=== PATIENT | male | born 1950 ===

== ENCOUNTER 2018-03-13 09:20 | Inpatient (IN) ==
[2018-03-13] MEDS ORDERED: Sod Chloride 0.9% Inj 1,000 ML IV.CONT SCH (09:30)
[2018-03-13 09:35] LABS: Baso # (Auto) 0.1 th/mm3 (0.0-0.2); Baso % (Auto) 0.8 % (0.0-2.0); Eos # (Auto) 0.2 th/mm3 (0.0-0.4); Eos % (Auto) 2.5 % (0.0-4.0); Hematocrit 41.2 % (39.0-51.0); Hemoglobin 13.8 gm/dL (13.0-17.0); Lymph # (Auto) 1.8 th/mm3 (1.0-4.8); Lymph % (Auto) 20.4 % (9.0-44.0); Mean Corpuscular HGB Conc 33.5 % (32.0-36.0); Mean Corpuscular Hemoglobin 28.7 pg (27.0-34.0); Mean Corpuscular Volume 85.8 fL (80.0-100.0); Mean Platelet Volume 8.2 fL (7.0-11.0); Mono # (Auto) 0.7 th/mm3 (0.0-0.9); Mono % (Auto) 7.7 % (0.0-8.0); Neut % (Auto) 68.6 % (16.0-70.0); Platelet Count 306 th/mm3 (150-450); Red Cell Distribution Width 14.1 % (11.6-17.2); White Blood Count 8.7 th/mm3 (4.0-11.0)
--- NOTE | 2018-03-13 09:42 | CT ---
EXAM DATE: AGE/SEX: 68 years / Male INDICATIONS: STROKE ALERT. Right side facial droop. Unable to follow commands. CLINICAL DATA: This is the patient's initial encounter. Patient reports that signs and symptoms have been present for 1 day and indicates a pain score of 0/10. MEDICAL/SURGICAL HISTORY: Non-responsive. Non-responsive. RADIATION DOSE: 39.02 CTDI (mGy) COMPARISON: No prior exams available for comparison. TECHNIQUE: CT of the head without contrast. Using automated exposure control and adjustment of the mA and/or kV according to patient size, radiation dose was kept as low as reasonably achievable to ob tain optimal diagnostic quality images. DICOM format image data is available electronically for revi ew and comparison. FINDINGS: There is mild prominence of the CSF spaces. No signs of acute infarct, hemorrhage, or mass. Osseous s tructures are intact. CONCLUSION: 1. Mild volume loss otherwise unremarkable. Findings of this examination were reviewed by [Dr. Mckeon with Dr. Johnson at 9:35 AM on March 13, 2018. ] Electronically signed by: Carlos Grider MD 03/13/2018 9:41 AM EDT
[2018-03-13 09:50] LABS: INR 1.1 Ratio; Prothrombin Time 10.7 sec (9.8-11.6)
--- NOTE | 2018-03-13 09:53 | ED ---
HPI General Chief Complaint: Stroke Alert Stated Complaint: Stroke Alert Time Seen by Provider: 03/13/18 09:22 Source: patient, family and EMS Mode of arrival: EMS Limitations: altered mental status History of Present Illness HPI Narrative: 68-year-old man, presents to the emergency department with the abrupt onset of right-sided weakness facial droop with marked expressive aphasia. He has a history of CAD, multiple MIs, multiple stents. I spent a lot of time trying to clarify his medication list. It sounds like he has been on escalating antiplatelet and anticoagulant therapy because of multiple MIs in the past. His medication list shows multiple medications listed and crossed out. It sounds like he had been given instructions to stop his Eliquis, but according the family he had been weaning himself off, and was still taking a half dose tablet daily. Patient has marked expressive aphasia and is unable to provide any history. 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 No history of previous stroke symptoms. Related Data Allergies Allergy/AdvReac Type Severity Reaction Status Date / Time No Known Allergies Allergy Unverified 03/13/18 09:23 Review of Systems ROS Unobtainable unobtainable due to mental condition FOR[facility]LY [facility] Medical History Medical History Coronary artery disease (Acute) HTN (hypertension) (Acute) Myocardial infarction (Acute) Social History Social History Substance History: Unable to Obtain Smoking Status: Unknown if ever smoked How Often Do You Have a Drink Containing Alcohol: Unable to Obtain Recent Travel in [place] within the Last 8 Weeks: No Recent Out of Country Travel within the Last 8 Weeks: No Exam Narrative Exam Narrative: GENERAL: 68-year-old man, nontoxic appearing. Mute aphasia. SKIN: Focused skin assessment warm/dry. HEAD: Atraumatic. Normocephalic. EYES: Pupils equal and round. No scleral icterus. No injection or drainage. ENT: No nasal bleeding or discharge. Mucous membranes pink and moist. NECK: Trachea midline. No JVD. CARDIOVASCULAR: Regular rate and rhythm. No murmur appreciated. RESPIRATORY: No accessory muscle use. Clear to auscultation. Breath sounds equal bilaterally. GASTROINTESTINAL: Abdomen soft, non-tender, nondistended. Hepatic and splenic margins not palpable. MUSCULOSKELETAL: No obvious deformities. No clubbing. No cyanosis. No edema. NEUROLOGICAL: Awake and alert. Mute aphasia with only occasional yeses or nose. Unable to follow commands. Seems to be weak on the right side with some right-sided drift. Sensation appears to be intact. He does not appear to have any neglect. Course Initial Documented Vital Signs Temperature 98.8 F 03/13/18 09:23 Pulse Rate 65 03/13/18 09:23 Respiratory Rate 18 03/13/18 09:23 Blood Pressure 158/75 H 03/13/18 09:23 Pulse Oximetry 95 03/13/18 09:23 Last Documented Vital Signs Temperature 98.8 F 03/13/18 09:23 Pulse Rate 65 03/13/18 09:23 Respiratory Rate 18 03/13/18 09:23 Blood Pressure 158/75 H 03/13/18 09:23 Pulse Oximetry 95 03/13/18 09:27 Critical Care Time Critical Care Time: Yes Total Critical Care Time: 45 Attestation: Aggregate critical care time was 45 minutes. Time to perform other separately billable procedures was not included in the critical care time. My time did not include minutes spent treating any other patients simultaneously or on activities that did not directly contribute to the patient's treatment. The services I provided to this patient were to treat and/or prevent clinically significant deterioration that could result in: , disability, stroke symptoms, intracranial bleed. I provided critical care services requiring my management, as noted below: Chart data review, documentation time, medication orders and management, vital sign assessments/reviewing monitor data, ordering and reviewing lab tests, ordering and interpreting/reviewing x-rays and diagnostic studies, care of the patient and discussion of the patient with the admitting physicians. NIH Stroke Scale NIHSS Time Completed NIHSS Time Completed: 09:00 NIH Stroke Scale Level of Consciousness: 0-Alert Orientation Questions: 2-Neither task correct Responds to Commands: 2-Neither task correct Gaze Eye Movement: 0-Horizontal movement WNL Visual Pascual: 0-No visual field defect Facial Movement: 1-Minor facial palsy Motor Functions Arm LEFT: 0-No drift Motor Functions Arm RIGHT: 1-Drift before 10 seconds Motor Functions Leg LEFT: 0-No drift Motor Functions Leg RIGHT: 2-Falls before 5 seconds Limb Ataxia: 0-No ataxia Sensory Loss: 0-No sensory loss Best Language: 3-Mute or global aphasia Articulation: 2-Severe dysarthria Extinction or Inattention Sensory: 0-Absent Total: 13 Medical Decision Making MDM Narrative Medical decision making narrative: 68-year-old man, presents with acute stroke symptoms. Mute aphasia complicates history. A lot of the history determined on whether or not he is taking his Eliquis. Best assessment is that he is still taking half dose Eliquis. This history comes from the friend and the family as well as his medication list. [facility] who reports that he was given instructions to discontinue the Eliquis at his last office visit. The friend is with him relates that he states she had encouraged him not to discontinue it abruptly as he had a trans-specific flight so maybe he was continuing it for this reason. Appears that he was on this for progressive coronary artery disease. He was taken immediately to CT, and CTA shows carotid occlusion on the left. Unclear chronicity. No history of cerebrovascular disease or carotid vascular disease that we know of. I discussed with the daughter over the phone, and with the friend who is with him, and patient was taken emergently to IR for intervention. Lab Data Result diagrams: 03/13/18 09:20 Lab Results 03/13/18 03/13/18 03/13/18 Range/Units 09:20 09:20 09:20 WBC 8.7 (4.0-11.0) th/mm3 RBC 4.80 (4.50-5.90) mil/mm3 Hgb 13.8 (13.0-17.0) gm/dL POC Hgb (Calc) 13.3 (13.0-17.0) g/dL Hct 41.2 (39.0-51.0) % POC Hct 39.0 (39-51.0) % MCV 85.8 (80.0-100.0) fL MCH 28.7 (27.0-34.0) pg MCHC 33.5 (32.0-36.0) % RDW 14.1 (11.6-17.2) % Plt Count 306 (150-450) th/mm3 MPV 8.2 (7.0-11.0) fL Neut % (Auto) 68.6 (16.0-70.0) % Lymph % (Auto) 20.4 (9.0-44.0) % [place] % (Auto) 7.7 (0.0-8.0) % Eos % (Auto) 2.5 (0.0-4.0) % Baso % (Auto) 0.8 (0.0-2.0) % Neut # (Auto) 6.0 (1.8-7.7) th/mm3 Lymph # (Auto) 1.8 (1.0-4.8) th/mm3 [place] # (Auto) 0.7 (0.0-0.9) th/mm3 Eos # (Auto) 0.2 (0.0-0.4) th/mm3 Baso # (Auto) 0.1 (0.0-0.2) th/mm3 WBC Differential . Differential Comment Auto diff final PT 10.7 (9.8-11.6) sec INR 1.1 Ratio APTT 28.0 (24.3-30.1) sec Fibrinogen 629 H (227-377) mg/dL POC Sodium 140 (137-144) mmol/L POC Potassium 4.5 (3.6-5.0) mmol/L POC Chloride 105 (102-111) mmol/L POC BUN 17 (5-21) mg/dL POC Creatinine 1.3 (0.6-1.3) mg/dL POC Glucose 97 (68-110) mg/dL Imaging Data Radiologist's impression: Head CT 03/13/18 09:27 CONCLUSION: 1. Mild volume loss otherwise unremarkable. Findings of this examination were reviewed by [Dr. Mckeon with Dr. Johnson at 9:35 AM on March 13, 2018. ] Discharge Plan Discharge Disposition Patient Disposition: 30 Still Patient Physicians Team ED Provider: Harvey Johnson Other Providers: Trisha Sotomayor Discharge Interventions Interventions: Vital Signs Last Done: 03/13/18 09:40 Status ED Status: With Doctor
[2018-03-13 10:01] LABS: Creatine Kinase 64 U/L (39-308)
[2018-03-13] MEDS ORDERED: Sod Chloride 0.9% Inj 1,000 ML IV.SIG ONE (10:22)
[2018-03-13] MEDS ORDERED: Phenylephrine/NS 1000 MCG/10ML Syringe IV.PUSH ONE (10:22)
[2018-03-13] MEDS ORDERED: Lidocaine PF 1% Inj 5 ML Syringe OTHER ONE (10:22)
[2018-03-13] MEDS ORDERED: Glycopyrrolate Inj 1 MG/5 ML Syringe IV.PUSH ONE (10:22)
[2018-03-13] MEDS ORDERED: Heparin 10,000 UNITS/10 ML Vial (for IV use) ONE (11:36)
[2018-03-13] MEDS ORDERED: Bisacodyl 10 MG Supp RECTAL PRN (11:44)
--- NOTE | 2018-03-13 12:00 | XR ---
EXAM DATE: 03/13/2018 9:51 AM EDT AGE/SEX: 68 years / Male INDICATIONS: Stroke Alert. CLINICAL DATA: This is the patient's initial encounter. Patient reports that signs and symptoms have been present for 1 day and indicates a pain score of Nonresponsive. MEDICAL/SURGICAL HISTORY: Non-responsive. Non-responsive. COMPARISON: No prior exams available for comparison. FINDINGS: Mild interstitial prominence which may be due to mid inspiratory effort. The cardiomediastinal contou rs are unremarkable for portable technique. Osseous structures are intact. CONCLUSION: 1. No acute cardiopulmonary disease. Electronically signed by: Sonny Ang MD 03/13/2018 10:00 AM EDT
--- NOTE | 2018-03-13 12:01 | CT ---
EXAM DATE: 03/13/2018 9:56 AM EDT AGE/SEX: 68 years / Male INDICATIONS: STROKE ALERT. Right sided facial droop. Unable to follow commands. CLINICAL DATA: This is the patient's initial encounter. Patient reports that signs and symptoms have been present for 1 day and indicates a pain score of Nonresponsive. MEDICAL/SURGICAL HISTORY: Non-responsive. Non-responsive. RADIATION DOSE: 28.77 CTDI (mGy) [place] [facility] [place]. . TECHNIQUE: Volumetric scanning was performed using a multi-row detector CT scanner during bolus infu mady of 72 ml Visipaque 320 (iodixanol) nonionic water-soluble contrast as a single exam dose. The data was post processed with a variety of visualization algorithms including full volume maximum int ensity projection, multi-planar sliding thin slab reformation, curved planar reformation, and surface rendering techniques. Using automated exposure control and adjustment of the mA and/or kV according to patient size, radiation dose was kept as low as reasonably achievable to obtain optimal diagnosti c quality images. DICOM format image data is available electronically for review and comparison. FINDINGS: There is excellent visualization of the major intracranial arteries out to the second-order branch ve ssels. There is no evidence for aneurysm, or vessel truncation, and no evidence for vascular malform ation. There does appear to be focal 5 mm segment of stenosis just distal to the middle cerebral jodi ry bifurcation, inferior branch M2 segment, as well as focal stenosis of the superior branch. The left cervical internal carotid artery occludes just distal to the bifurcation with patent supracl inoid segment. CONCLUSION: 1. Left internal carotid artery is occluded. 2. There is focal stenosis of the M2 division of the left middle cerebral artery as described above. Electronically signed by: Carlos Grider MD 03/13/2018 10:30 AM EDT
--- NOTE | 2018-03-13 12:01 | CT ---
EXAM DATE: 03/13/2018 10:27 AM EDT AGE/SEX: 68 years / Male INDICATIONS: STROKE ALERT. Right side facial droop. Unable to follow commands. CLINICAL DATA: This is the patient's initial encounter. Patient reports that signs and symptoms have been present for 1 day and indicates a pain score of Nonresponsive. MEDICAL/SURGICAL HISTORY: Non-responsive. Non-responsive. RADIATION DOSE: 28.77 CTDI (mGy) ; Combined studies COMPARISON: No prior exams available for comparison. TECHNIQUE: Volumetric scanning was performed using a multirow detector CT scanner during bolus infus ion of 72 ml Visipaque 320 (iodixanol) nonionic water-soluble contrast as a single exam dose. The data was postprocessed with a variety of visualization algorithms including full-volume maximum inten sity projection, multiplanar sliding thin-slab reformation, curved-planar reformation, and surface-re ndering techniques. Using automated exposure control and adjustment of the mA and/or kV according to patient size, radiation dose was kept as low as reasonably achievable to obtain optimal diagnostic q uality images. DICOM format image data is available electronically for review and comparison. Percent stenosis is calculated using the diameter of the stenotic region over the diameter of the nor mal distal internal carotid artery. FINDINGS: Aortic Arch: There is a three-vessel origin of the great vessels from the aorta. No evidence of ost ial narrowing Right Carotid: The common carotid artery is intact. The carotid bulb has a normal configuration wit hout ulceration or narrowing. The internal carotid artery lumen is smooth without stenosis. The ext ernal carotid artery is intact. Left Carotid: The common carotid artery is intact. The carotid bulb has a normal configuration with out ulceration or narrowing. The internal carotid artery occludes 1.3 cm distal to the bifurcation. The external carotid artery is intact. Vertebrals: The vertebral arteries have a symmetric diameter. No stenotic lesions are seen. CONCLUSION: 1. Left ICA occlusion. Electronically signed by: Carlos Grider MD 03/13/2018 10:33 AM EDT
[2018-03-13] MEDS ORDERED: fentaNYL Citrate Inj 100 MCG/2 ML Ampul ONE (13:09)
[2018-03-13] MEDS ORDERED: Dextrose 50% in Water 50 ML Vial IV.PUSH PRN (14:11)
--- NOTE | 2018-03-13 14:31 | MB ---
cc: Trisha Sotomayor MD DATE: 03/13/2018 REASON FOR CONSULTATION: Stroke alert. HISTORY OF PRESENT ILLNESS: This is a 68-year-old gentleman who came into the ER earlier today with an abrupt onset right-sided weakness with facial droop, expressive aphasia, with a known history of heart disease, MIs, and multiple stents. Apparently, there was some issue about him escalating antiplatelets and anticoagulant therapy in the past and apparently was given some instruction to stop his Eliquis, but he was weaning himself off. As far as we know, he was on 2.5 mg b.i.d. The patient was sent stat to CT and CTA of the [place] of [place] and carotids and felt to have occluded left ICA and focal stenosis of M2 on the left MCA. He was taken to interventional radiology for procedure and I am told that the areas were reperfused. He is now back in the room. Weakness has seemed to have resolved on the right side, but still has some degree of expressive aphasia. PAST MEDICAL HISTORY: As stated. SOCIAL HISTORY: Unable to obtain at this time. ALLERGIES: NONE REPORTED. PHYSICAL EXAMINATION: VITAL SIGNS: Blood pressure 119/73, pulse 58, respiratory rate 17, saturation 97% on room air. NECK: Supple. No appreciable bruits. HEART: Regular. No Afib. NEUROLOGIC: He is awake and alert. Expressive aphasia is still ongoing. Unable to state his name. Can follow simple commands. Midline as far as opening mouth, stick out your tongue, close your eyes. 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 No significant leg lag noted. DTRs are 2+. Sensory he states he can feel and withdraws to some painful stimuli. Toes are neutral bilaterally. Cerebellar cannot be assessed nor gait at this time. LABORATORY DATA: His CBC is unremarkable. Coag panel, his fibrinogen was 629. Chemistries are reviewed. His troponin less than 0.02. IMAGING REPORTS: His neck CTA showed occlusion of the left ICA. Head CTA as stated, focal stenosis of M2 on the left MCA territory. CT brain showed volume loss, but no bleed. IMPRESSION: Left middle cerebral artery territorial infarct, status post interventional radiology procedure with reperfusion. RECOMMENDATIONS: At this point in time, I did discuss with the intensive care physician as to whether we should put him on heparin. I have no objection to put him on a heparin drip and then with bridging him over to p.o. anticoagulant. He will need a speech therapy evaluation, physical therapy evaluation and occupational therapy evaluation and consult to rehabilitation medicine. We will get MRI of the brain, and I would go ahead further and look at the [place] and carotids. Could check an echo. Permissible hypertension for the next 24 hours. SCDs. If heparin is not started for any reason, then he will need subcutaneous heparin for deep venous thrombosis prevention and get him out of bed tomorrow if he is stable. Further recommendations will be made accordingly. MD LEONA Hayden/ROD , 02:07 PM , 02:16 PM
--- NOTE | 2018-03-13 15:03 | MH ---
cc: Lenny Doherty MD DATE OF ADMISSION: 03/13/2018 HISTORY OF PRESENT ILLNESS: The patient is a 68-year-old male with a past medical history of coronary artery disease with previous stent placements and hypertension, who presented to [facility] ED as a stroke alert. The patient had abrupt onset of right-sided weakness, associated with mild facial droop and marked expressive aphasia. 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 However, the patient was only using half the dose of Eliquis. Due to altered mental status, he underwent a CT brain, which showed mild volume loss, otherwise unremarkable. A CTA of the head and neck was obtained, which showed a left ICA occlusion. He was seen by Dr. Sotomayor from neurology service. In addition, the patient went to , where he underwent thrombectomy. A chest x-ray in the ED showed no acute cardiopulmonary disease. The patient received heparin in the ED. When seen, the patient is awake, follows commands; however, expressive aphasia noted. He is able to move all 4 extremities. There is no history of previous CVA. PAST MEDICAL HISTORY: Significant for coronary artery disease, hypertension, and previous myocardial infarctions. PAST SURGICAL HISTORY: Previous coronary stent placements. ALLERGIES: PENICILLIN, PER SIGNIFICANT OTHER. SOCIAL HISTORY: Ex-smoker, quit smoking 2 years ago. FAMILY HISTORY: Noncontributory to present illness. MEDICATIONS AT HOME: Include: 1. Coreg. 2. Atorvastatin. 3. Eliquis. 4. Protonix. 5. Lisinopril. 6. Aspirin. REVIEW OF SYSTEMS: As per HPI, rest of review of systems is limited as the patient is a poor historian. PHYSICAL EXAMINATION: GENERAL: A 68-year-old male lying in bed in no acute distress. VITAL SIGNS: Afebrile with temperature of 97.6, pulse 55, blood pressure 114/65, saturation 95% on room air. HEENT: Atraumatic, normocephalic. Pupils are equal, round, reactive to light and accommodation. Extraocular muscles intact. Conjunctivae pink, anicteric sclerae. Oral mucosa within normal. NECK: Supple. No JVD, adenopathy or thyromegaly. Trachea in the midline. CARDIOVASCULAR: Regular rate and rhythm. Normal S1, S2. No murmurs, rubs or gallops noted. PULMONARY: Bilateral equal air entry. No rales or wheezing. ABDOMEN: Soft, nontender, nondistended, positive bowel sounds. EXTREMITIES: No cyanosis, clubbing, edema. NEUROLOGIC: Expressive aphasia noted. He is able to move all 4 extremities. He does not have any neglect and sensation appears to be intact. LABORATORY DATA: WBC 8.7, hemoglobin 13.8, hematocrit 41, platelet count of 306. INR 1.1, PT 10.7, PTT 28. Point of care sodium 140, potassium 4.5, chloride 105, BUN 17, creatinine 1.3, glucose 97. Troponin less than 0.02. Total CK 64. RADIOGRAPHIC STUDIES: CT scan of the brain showed mild volume loss, otherwise unremarkable. CT of the head and neck showed left ICA occlusion. Chest x-ray showed no evidence of acute cardiopulmonary disease. IMPRESSION: 1. Altered mental status. 2. Cerebrovascular accident. 3. Left internal carotid artery occlusion, status post thrombectomy. 4. History of coronary artery disease. 5. History of hypertension. RECOMMENDATIONS: 1. Monitor neuro status closely and avoid any sedatives. The patient underwent a thrombectomy by IR. A CT scan of the brain was negative for acute disease. However, CTA of the brain and CT of the head and neck showed left internal carotid artery occlusion. Discussed with Dr. Sotomayor from neurology service and he will need anticoagulation. We will start heparin drip. In addition, we will proceed with MRI of the brain in the next 24 hours. We will defer further anticoagulation per neurology. 2. Oxygen p.r.n. to maintain sats above 92%. 3. Aspiration precautions. Monitor heart rate and blood pressure closely, and maintain MAP greater than 65 mmHg. 4. We will obtain 2-D echo to evaluate LV function. He is in normal sinus rhythm. 5. Monitor renal function, I's and O's and electrolyte replacement per protocol. Place on IV fluids, D5NS at 75 mL an hour. 6. Keep n.p.o. for now and place on Pepcid for GI prophylaxis. I will consult speech therapy for evaluation. 7. Monitor for signs of infection, which include fever and WBC. [place] culture if spikes a fever. A chest x-ray in the ED negative for acute cardiopulmonary disease. 8. Sliding scale insulin if needed for glycemic control. 9. Monitor CBC and coags. 10. Gastrointestinal prophylaxis with Pepcid and DVT prophylaxis with sequential compression devices and patient to start heparin drip per neurology. 11. Case discussed with Dr. Sotomayor. Further recommendations will be based on hospital course. MD GERARD Crespo/ROD , 02:26 PM , 02:40 PM
--- NOTE | 2018-03-13 15:07 | IR ---
EXAM DATE: 03/13/2018 2:33 PM EDT AGE/SEX: 68 years / Male INDICATIONS: Patient with signs and symptoms of stroke in need of angiogram with interventions. CLINICAL DATA: This is the patient's initial encounter. Patient reports that signs and symptoms have been present for 1 day and indicates a pain score of Nonresponsive. MEDICAL/SURGICAL HISTORY: Stroke. Unable to obtain any other history. . Unable to obtain. COMPARISON: . FLUORO TIME (min): 35.8 IMAGE SERIES: 52 ACCESS SITE: Right femoral artery CONTRAST (cc): 100 Visipaque (iodixanol) MEDICATION(S): 2g cefazolin (Ancef) IV 2000 units Heparin IV Anesthesia and pain control was provided by the Anesthesia department. DEVICE(S): Left internal carotid artery SpideRX embolic protection Left MCA, Solitaire Hoh 4 x 40. Left internal carotid artery Solitaire Hoh 6 x 40 Left internal carotid artery mechanical thrombectomy Penumbra. Right Angio-Seal 8 fr, Femoral Artery. . . TIMELINE: Interventional Team Called: [phone] Interventional Team Arrived: 0940 Interventional Team Ready 0940 Patient Arrival: 0950 Groin Puncture: [phone] Recanalization: [id number] PROCEDURE : 1. Ultrasound-guided puncture of the access site. 2. Angiography of the access site prior to closure device. 3. Conscious sedation with continuous EKG and Oximetry monitoring. 4. Percutaneous closure of the access site. 5. Angiography of the left common carotid artery 6. Angiography of the left internal carotid artery 7. Suction thrombectomy of the left internal carotid artery 8. Stent retrieval and suction thrombectomy of thrombus of the left middle cerebral artery The risks, benefits and alternatives to the procedure were explained and verbal and written consent w as obtained. The site was prepped in sterile fashion. Full sterile technique was used, including cap, mask, sterile gloves and gown and a large sterile sheet. Hand hygiene and 2% chlorhexidine and/or be tadine/alcohol prep was utilized per protocol for cutaneous antisepsis. The skin and subcutaneous tis sues were infiltrated with local anesthetic solution. Sterile gel and sterile probe cover were utili zed for ultrasound guidance. With ultrasound and fluoroscopic guidance the selected artery was punctured and a vascular sheath was placed. Angiography of the common femoral artery was performed for evaluation prior to percutaneous closure device placement. A diagnostic catheter was placed into the prescribed common carotid artery and angiography was perfor med . This demonstrates complete occlusion just beyond the origin of the left internal carotid artery . Suction thrombectomy was applied to the internal carotid artery with a large bore microcatheter and small fragments of thrombus were removed. This catheter was advanced more distally to the level of s kull base where similar suction thrombectomy was performed again demonstrating small fragments of thr ombus. At the carotid terminus and extending into the left middle cerebral artery are thrombus was id entified. 2 passes were made with a Salter device across the area of thrombus while suction was appli ed. There was complete removal of thrombus. Followup angiography demonstrates yarsanism of flow with TICI 3 flow. Hemostasis was obtained with the prescribed medicated closure device. Conscious sedation was performe d with the prescribed dosages and duration as above. EKG and oximetry remained stable throughout the procedure. The patient was sent to post anesthesia recovery in stable condition. CONCLUSION: 1. Uncomplicated Thrombectomy of left carotid terminus and proximal left middle cerebral artery lesi on with yarsanism of TICI3 flow Electronically signed by: Bennett Oglesby MD 03/13/2018 3:06 PM EDT
--- NOTE | 2018-03-13 15:41 | P.RAD ---
Post Procedure Progress Note - Procedure Information Procedure Date: 03/13/18 Supervising Radiologist: Bennett Oglesby MD Anesthesia: General - Plan of Activity Patient to Unit: Critical Care Patient Condition: Critical See PACS Report for procedural detail/treatment. Vascular - Arterial Procedure left Cerebral Procedure: Embolectomy - Additional Information Findings: thrombolysis of left mca with restoation of flow tici 3
[2018-03-13] MEDS: Dextrose 5%/NaCl 0.9% Inj 1,000 ML IV.CONT SCH (16:44)
--- NOTE | 2018-03-13 16:59 | ECG ---
Date Performed: 03/13/2018 Time Performed: 09:23:10 PTAGE: 68 years EKG: SINUS BRADYCARDIA INCOMPLETE RIGHT BUNDLE BRANCH BLOCK LEFT ANTERIOR FASCICULAR BLOCK POSSI BLE ANTERIOR MYOCARDIAL INFARCTION-old ABNORMAL ECG NO PREVIOUS TRACING DOCTOR: Dorcas Baxter Interpretating Date/Time 03/13/2018 16:58:34
[2018-03-13] MEDS: Insulin NovoLOG Aspart Correctional Sugar Inj SQ SCH (18:00)
[2018-03-13 19:53] LABS: Hematocrit 39.1 % (39.0-51.0); Hemoglobin 13.1 gm/dL (13.0-17.0); Mean Corpuscular HGB Conc 33.5 % (32.0-36.0); Mean Corpuscular Hemoglobin 29.3 pg (27.0-34.0); Mean Corpuscular Volume 87.5 fL (80.0-100.0); Mean Platelet Volume 8.3 fL (7.0-11.0); Platelet Count 298 th/mm3 (150-450); Red Blood Count 4.46 mil/mm3 (4.50-5.90)
[2018-03-13] MEDS: Heparin Drip 25,000 UNIT/250 ML BAG IV.CONT PRN (19:54)
[2018-03-13 19:55] LABS: INR 1.1 Ratio
[2018-03-14] MEDS: Senna/Docusate Sodium 8.6/50 MG Tablet PO SCH ×3 (00:54→20:29)
[2018-03-14] MEDS: Famotidine PF Inj 20 MG/2 ML Vial IV.PUSH SCH ×3 (01:07→20:29)
[2018-03-14 02:04] LABS: Magnesium 1.9 mg/dL (1.5-2.5)
[2018-03-14 02:13] LABS: Baso % (Auto) 0.2 % (0.0-2.0); Hematocrit 36.7 % (39.0-51.0); Hemoglobin 12.2 gm/dL (13.0-17.0); Lymph # (Auto) 1.3 th/mm3 (1.0-4.8); Lymph % (Auto) 10.4 % (9.0-44.0); Mean Corpuscular HGB Conc 33.2 % (32.0-36.0); Mean Corpuscular Hemoglobin 28.5 pg (27.0-34.0); Mean Corpuscular Volume 85.8 fL (80.0-100.0); Mean Platelet Volume 8.3 fL (7.0-11.0); Mono # (Auto) 0.6 th/mm3 (0.0-0.9); Mono % (Auto) 4.9 % (0.0-8.0); Neut # (Auto) 10.9 th/mm3 (1.8-7.7); Neut % (Auto) 84.5 % (16.0-70.0); Platelet Count 295 th/mm3 (150-450); Red Blood Count 4.28 mil/mm3 (4.50-5.90); Red Cell Distribution Width 13.9 % (11.6-17.2); White Blood Count 12.9 th/mm3 (4.0-11.0)
[2018-03-14] MEDS: Dextrose 5%/NaCl 0.9% Inj 1,000 ML IV.CONT SCH ×2 (02:28→18:28)
[2018-03-14] MEDS ORDERED: Chlorhexidine Gluconate 2% 1 Pack (2 Cloths) TOPICAL PRN (04:00)
[2018-03-14] MEDS: Insulin NovoLOG Aspart Correctional Sugar Inj SQ SCH ×4 (07:00→18:40)
[2018-03-14] MEDS: Chlorhexidine Gluconate 2% 1 Pack (2 Cloths) TOPICAL SCH (07:29)
--- NOTE | 2018-03-14 09:07 | P.PNCC ---
Subjective Subjective Remarks/Hospital Course: Patient is a 68-year-old male with a past medical history of coronary artery disease with previous stent placements and hypertension, who presented to [facility] ED as a stroke alert. The patient had abrupt onset of right-sided weakness, associated with mild facial droop and marked expressive aphasia. 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 However, the patient was only using half the dose of Eliquis. Due to altered mental status, he underwent a CT brain, which showed mild volume loss, otherwise unremarkable. A CTA of the head and neck was obtained, which showed a left ICA occlusion. He was seen by Dr. Sotomayor from neurology service. In addition, the patient went to IR, where he underwent thrombectomy. A chest x-ray in the ED showed no acute cardiopulmonary disease. The patient received heparin in the ED. When seen, the patient is awake, follows commands; however, expressive aphasia noted. He is able to move all 4 extremities. There is no history of previous CVA. 03/14 No events overnight, on Heparin drip. Patient's aphasia is better today. For MRI brain. Objective Vital Signs / I&O: Vital Signs 03/13/18 09:23 03/13/18 09:25 03/13/18 09:27 Temperature 98.8 F Pulse Rate 65 Respiratory Rate 18 Blood Pressure 158/75 H Pulse Oximetry 95 95 95 03/13/18 09:30 03/13/18 09:35 03/13/18 09:40 Temperature Pulse Rate 63 58 L 58 L Respiratory Rate 17 17 17 Blood Pressure 124/81 121/72 119/73 Pulse Oximetry 95 96 97 03/13/18 13:00 03/13/18 14:00 03/13/18 15:00 Temperature 97.6 F Pulse Rate 54 L 52 L 54 L Respiratory Rate 17 20 24 Blood Pressure 114/65 94/54 L 104/57 L Pulse Oximetry 95 96 96 03/13/18 15:33 03/13/18 16:00 03/13/18 17:00 Temperature 98.5 F Pulse Rate 53 L 54 L 57 L Respiratory Rate 16 20 25 H Blood Pressure 105/56 L 97/56 L Pulse Oximetry 96 94 L 96 03/13/18 18:00 03/13/18 20:00 03/13/18 21:01 Temperature 97.8 F Pulse Rate 60 68 71 Respiratory Rate 20 24 20 Blood Pressure 97/55 L 103/62 Pulse Oximetry 93 L 94 L 03/13/18 22:00 03/14/18 00:00 03/14/18 02:00 Temperature 98.1 F Pulse Rate 66 65 64 Respiratory Rate 14 Blood Pressure 114/66 Pulse Oximetry 99 03/14/18 04:00 03/14/18 06:00 03/14/18 07:58 Temperature 97.7 F Pulse Rate 61 61 68 Respiratory Rate 16 15 Blood Pressure 118/58 L Pulse Oximetry 98 96 Intake & Output 03/13/18 03/14/18 03/14/18 18:59 06:59 18:59 Intake Total 1120 / 1120 Output Total 450 / 450 Balance -10 10 670 / 670 Weight 92.2 kg 92.2 kg Intake: IV 1120 / 1120 D5W/Normal Saline Inj 1,000 ML 1000 / 1000 @ 75 mls/hr IV.CONT .[id number] RAÚL Rx#:[id number] Heparin/D5W 25,000 U/250 mL 25, 120 / 120 000 unit In 250 ml @ Per Protocol IV.CONT TITRATE PRN Rx #:[id number] Output: Urine 450 / 450 Other: # Incontinent Voids 4 1 Result Diagrams: 03/14/18 01:24 Other Results: Laboratory Results - last 12 hr 03/14/18 03/14/18 03/14/18 01:02 01:24 01:24 WBC 12.9 H RBC 4.28 L Hgb 12.2 L Hct 36.7 L MCV 85.8 MCH 28.5 MCHC 33.2 RDW 13.9 Plt Count 295 MPV 8.3 Neut % (Auto) 84.5 H Lymph % (Auto) 10.4 [place] % (Auto) 4.9 Eos % (Auto) 0.0 Baso % (Auto) 0.2 Neut # (Auto) 10.9 H Lymph # (Auto) 1.3 [place] # (Auto) 0.6 Eos # (Auto) 0.0 Baso # (Auto) 0.0 WBC Differential . Differential Comment Auto diff final APTT 34.3 H D POC Glucose 120 H Phosphorus Magnesium 03/14/18 01:24 WBC RBC Hgb Hct MCV MCH MCHC RDW Plt Count MPV Neut % (Auto) Lymph % (Auto) [place] % (Auto) Eos % (Auto) Baso % (Auto) Neut # (Auto) Lymph # (Auto) [place] # (Auto) Eos # (Auto) Baso # (Auto) WBC Differential Differential Comment APTT POC Glucose Phosphorus 3.0 Magnesium 1.9 Imaging: Cerebral Angiography 03/13/18 00:00 CONCLUSION: 1. Uncomplicated Thrombectomy of left carotid terminus and proximal left middle cerebral artery lesion with oriental orthodox of TICI3 flow Chest X-Ray 03/13/18:27 CONCLUSION: 1. No acute cardiopulmonary disease. Head CT 03/13/18: CONCLUSION: 1. Mild volume loss otherwise unremarkable. Findings of this examination were reviewed by [Dr. Mckeon with Dr. Johnson at 9:35 AM on March 13, 2018. ] Head CTA 03/13/18: CONCLUSION: 1. Left internal carotid artery is occluded. 2. There is focal stenosis of the M2 division of the left middle cerebral artery as described above. Neck CTA 03/13/18: CONCLUSION: 1. Left ICA occlusion. Objective Remarks: GENERAL: Patient is 68 yo lying in bed in NAD SKIN: Warm and dry. HEAD: Normocephalic. EYES: No scleral icterus. No injection or drainage. NECK: Supple, trachea midline. No JVD or lymphadenopathy. CARDIOVASCULAR: Regular rate and rhythm without murmurs, gallops, or rubs. RESPIRATORY: Breath sounds equal bilaterally. No accessory muscle use. GASTROINTESTINAL: Abdomen soft, non-tender, nondistended. MUSCULOSKELETAL: No cyanosis, or edema. Neuro: Awake and alert. Assessment and Plan - Assessment and Plan Plan: 1. Resp Insuff 2. Left MCA CVA 3. Left internal carotid artery occlusion, status post thrombectomy. 4. History of CAD. 5. Hypertension. 6. Mild Leukocytosis Plan Neuro: Monitor neuro status closely and avoid any sedatives. s/p embolectomy by IR. CT brain: negative for acute disease. CT of the head and neck showed left internal carotid artery occlusion. On Heparin drip per neuro- Dr. Sotomayor. For MRI brain today Pulm: Continue with Oxygen maintain sats > 92%. CV: Monitor HR and BP and maintain MAP >65 mmHg. For 2D echo : Monitor renal function, I's and O's and electrolyte replacement per protocol. On D5NS at 75 mL an hour. GI: on Pepcid for GI prophylaxis. Speech evaluation. ID: Monitor for signs of infection(fever and WBC). Murillo culture if spikes a fever. CXR in ED negative for acute cardiopulmonary disease. Check UA with cx if needed. Endo: SSI if needed for glycemic control. heme: Monitor CBC and coags. GI prophylaxis - on Pepcid DVT prophylaxis- on heparin drip . Level 2
[2018-03-14 12:30] LABS: Albumin 2.8 g/dL (3.4-5.0); Anion Gap 9 meq/L (5-15); Aspartate Aminotransferase 18 U/L (15-37); Blood Urea Nitrogen 16 mg/dL (7-18); Calcium 8.9 mg/dL (8.5-10.1); Chloride 109 meq/L (98-107); Glomerular Filtration Rate 50 mL/min (>89); Glucose,Random 106 mg/dL (74-106); Sodium 142 meq/L (136-145)
[2018-03-14 12:31] LABS: Alanine Aminotransferase 28 U/L (12-78)
[2018-03-14 12:33] LABS: Alkaline Phosphatase 70 U/L (45-117); Total Protein 6.7 g/dL (6.4-8.2)
[2018-03-14 14:28] LABS: Bilirubin,Urine Negative (Negative); Color,Urine Yellow (Yellw/Straw); Glucose,Urine (UA) 50 mg/dL (Negative); Leukocyte Esterase,Urine Negative (Negative); Nitrite,Urine Negative (Negative); Specific Gravity,Urine 1.016 (1.002-1.035); Squamous Epithelial Cell,Urine <1 /hpf (0-5)
[2018-03-14 14:35] LABS: Clarity,Urine Clear (Clear)
[2018-03-14] MEDS: Heparin Drip 25,000 UNIT/250 ML BAG IV.CONT PRN (15:28)
--- NOTE | 2018-03-14 16:46 | MR ---
EXAM DATE: 03/14/2018 4:37 PM EDT AGE/SEX: 68 years / Male INDICATIONS: CVA. CLINICAL DATA: This is the patient's initial encounter. Patient reports that signs and symptoms have been present for 1 day and indicates a pain score of 0/10. MEDICAL/SURGICAL HISTORY: Hypertension. Myocardial infarction and coronary artery disease. Cor onary artery stent. COMPARISON: No prior exams available for comparison. TECHNIQUE: Multiplanar, multisequence examination of the brain was performed without contrast. FINDINGS: Cerebrum: The ventricles are normal for age. No evidence of midline shift, mass lesion, hemorrhage. There is evidence of an acute infarction involving the left temporal frontal lobe.. No extraaxial f luid collections are seen. The pituitary gland and suprasellar cistern are normal in configuration. White Matter: No significant signal abnormalities are seen in the white matter. Posterior Fossa: The cerebellum and brainstem are intact. The 4th ventricle is midline. The cerebel lopontine angle is unremarkable. The cerebellar tonsils are normal in position. Diffusion Imaging: There is restricted diffusion involving the left temporal frontal lobe consistent with an acute infarction. Extracranial: The visualized portions of the orbits and paranasal sinuses are unremarkable. CONCLUSION: 1. There is evidence of an acute infarction involving the left temporal frontal lobe. Electronically signed by: Jose Miguel Santa MD 03/14/2018 4:45 PM EDT
--- NOTE | 2018-03-14 19:20 | ECHRPT ---
Indication: CVA/TIA CONCLUSIONS The left ventricular systolic function is mildly reduced with an estimated ejection fraction in the range of 45- 50%. Wall thickness is normal. Normal left ventricular size. BP: / HR: Rhythm: Sinus MEASUREMENTS (Male / Female) Normal Values Technical Quality:Fair 2D ECHO LV Diastolic Diameter PLAX 4.5 cm 4.2 - 5.9 / 3.9 - 5.3 cm LV Systolic Diameter PLAX 3.7 cm IVS Diastolic Thickness 1.0 cm 0.6 - 1.0 / 0.6 - 0.9 cm LVPW Diastolic Thickness 1.0 cm 0.6 - 1.0 / 0.6 - 0.9 cm LV Relative Wall Thickness 0.4 LVOT Diameter 2.1 cm M-MODE Aortic Root Diameter MM 3.4 cm LA Systolic Diameter MM 2.9 cm LA Ao Ratio MM 0.9 AV Cusp Separation MM 2.1 cm DOPPLER AV Peak Velocity 92.1 cm/s AV Peak Gradient 3.4 mmHg LVOT Peak Velocity 85.9 cm/s LVOT Peak Gradient 3.0 mmHg AV Area Cont Eq pk 3.2 cm Mitral E Point Velocity 64.2 cm/s Mitral A Point Velocity 88.4 cm/s Mitral E to A Ratio 0.7 LV E' Lateral Velocity 8.1 cm/s Mitral E to LV E' Lateral Ratio 7.9 PV Peak Velocity 110.0 cm/s PV Peak Gradient 4.8 mmHg FINDINGS LEFT VENTRICLE The left ventricular systolic function is mildly reduced with an estimated ejection fraction in the range of 45- 50%. Wall thickness is normal. Normal left ventricular size. RIGHT VENTRICLE Normal right ventricular size and systolic function. LEFT ATRIUM The left atrial size is normal. RIGHT ATRIUM The right atrial size is normal. ATRIAL SEPTUM Normal atrial septal thickness without atrial level shunting by limited color doppler interrogation. AORTA The aortic root and proximal ascending aorta are normal in size on limited imaging. MITRAL VALVE Structurally normal mitral valve. No mitral valve stenosis or regurgitation. AORTIC VALVE Trileaflet aortic valve. No aortic valve stenosis or regurgitation. TRICUSPID VALVE Structurally normal tricuspid valve. No tricuspid valve stenosis or regurgitation. PULMONARY VALVE The pulmonary valve is not well visualized. VESSELS The inferior vena cava is normal in size. PERICARDIUM No pericardial effusion. Jorge Orr MD, FACC, [facility] [place] (Electronically Signed) Final Date:14 March 2018 19:19
[2018-03-15] MEDS: Insulin NovoLOG Aspart Correctional Sugar Inj SQ SCH ×3 (02:05→14:22)
[2018-03-15 04:39] LABS: Baso % (Auto) 0.4 % (0.0-2.0); Eos % (Auto) 0.5 % (0.0-4.0); Hematocrit 35.6 % (39.0-51.0); Hemoglobin 12.2 gm/dL (13.0-17.0); Lymph # (Auto) 1.7 th/mm3 (1.0-4.8); Lymph % (Auto) 19.1 % (9.0-44.0); Mean Corpuscular HGB Conc 34.2 % (32.0-36.0); Mean Corpuscular Volume 84.6 fL (80.0-100.0); Mean Platelet Volume 7.9 fL (7.0-11.0); Mono # (Auto) 0.7 th/mm3 (0.0-0.9); Mono % (Auto) 7.6 % (0.0-8.0); Neut # (Auto) 6.6 th/mm3 (1.8-7.7); Neut % (Auto) 72.4 % (16.0-70.0); Platelet Count 293 th/mm3 (150-450); Red Blood Count 4.21 mil/mm3 (4.50-5.90); White Blood Count 9.1 th/mm3 (4.0-11.0)
[2018-03-15 05:01] LABS: Albumin 2.9 g/dL (3.4-5.0); Anion Gap 7 meq/L (5-15); Aspartate Aminotransferase 20 U/L (15-37); Blood Urea Nitrogen 11 mg/dL (7-18); Calcium 8.6 mg/dL (8.5-10.1); Carbon Dioxide 24.8 meq/L (21.0-32.0); Chloride 110 meq/L (98-107); Glomerular Filtration Rate 51 mL/min (>89); Glucose,Random 112 mg/dL (74-106); Potassium 3.7 meq/L (3.5-5.1); Sodium 142 meq/L (136-145)
[2018-03-15 05:03] LABS: Alanine Aminotransferase 26 U/L (12-78)
[2018-03-15 05:05] LABS: Alkaline Phosphatase 71 U/L (45-117); Total Protein 6.8 g/dL (6.4-8.2)
[2018-03-15] MEDS: Chlorhexidine Gluconate 2% 1 Pack (2 Cloths) TOPICAL SCH (05:45)
[2018-03-15] MEDS: Dextrose 5%/NaCl 0.9% Inj 1,000 ML IV.CONT SCH (05:45)
--- NOTE | 2018-03-15 09:55 | P.PNNEU ---
Subjective Subjective Comments: No acute events reported No headache No chest pain No dyspnea no seizure aphasia is improving no problems overnight Active Medications: Active Medications Al Hydroxide/Mg Hydroxide (Milk Of Magnesia Liq) 30 ml PO Q12H PRN PRN Reason: Mild Constipation Albuterol (Duoneb Neb ([facility])) 1 ampul NEB Q6HR NEB [facility] Last Admin: 03/15/18 03:47 Dose: 1 ampul Bisacodyl (Dulcolax Supp) 10 mg RECTAL DAILY PRN PRN Reason: SEVERE CONSITIPATION Chlorhexidine Gluconate (Chlorhexidine 2% Cloth) 3 pack TOPICAL DAILY@0400 [facility] Stop: 03/19/18 03:59 Last Admin: 03/15/18 05:45 Dose: 3 pack Chlorhexidine Gluconate (Chlorhexidine 2% Cloth) 3 pack TOPICAL DAILY@0400 PRN PRN Reason: Extra cloth needed Stop: 03/19/18 03:59 Dextrose (D50w Vial) 50 ml IV.PUSH UNSCH PRN PRN Reason: PER HYPOGLYCEMIA PROTOCOL Famotidine (Pepcid Pf Inj) 20 mg IV.PUSH Q12HR [facility] Last Admin: 03/14/18 20:29 Dose: 20 mg Glucagon (Glucagon Inj) 1 mg OTHER UNSCH PRN PRN Reason: for Hypoglycemia Protocol Dextrose/Sodium Chloride (D5w/Normal Saline Inj) 1,000 mls @ 75 mls/hr IV.CONT .[id number] [facility] Last Admin: 03/15/18 05:45 Dose: 75 mls/hr Heparin Sodium/Dextrose (Heparin/D5w 25,000 U/250 Ml) 25,000 unit in 250 mls @ 0 mls/hr IV.CONT TITRATE PRN; Protocol PRN Reason: Per Protocol Last Admin: 03/14/18 15:28 Dose: 1,200 units/hr, 12 mls/hr Insulin Aspart (Novolog Insulin Correctional Sugar Inj) 0 unit SQ Q6HR [facility]; Protocol Last Admin: 03/15/18 09:31 Dose: Not Given Lactulose (Lactulose Liq) 30 ml PO DAILY PRN PRN Reason: SEVERE CONSITIPATION Senna/Docusate Sodium (Laura-Colace) 1 tab PO BID [facility] Last Admin: 03/14/18 20:29 Dose: 1 tab Sennosides (Senokot) 17.2 mg PO Q12H PRN PRN Reason: Moderate Constipation Allergies/Adverse Reactions: Allergies Allergy/AdvReac Type Severity Reaction Status Date / Time Penicillins Allergy Hives Verified 03/13/18 19:16 Review of Systems All other systems reviewed negative except as stated in HPI Physical Exam Vital signs: Vital Signs 03/14/18 10:00 03/14/18 12:00 03/14/18 14:00 Temperature 98.5 F Pulse Rate 72 72 69 Respiratory Rate 18 Blood Pressure 130/67 Pulse Oximetry 96 03/14/18 16:00 03/14/18 16:26 03/14/18 18:00 Temperature 98.9 F Pulse Rate 68 67 Respiratory Rate 17 Blood Pressure 149/82 H Pulse Oximetry 99 95 03/14/18 20:00 03/14/18 21:36 03/14/18 21:37 Temperature 98.6 F Pulse Rate 79 79 Respiratory Rate 23 20 Blood Pressure 170/78 H Pulse Oximetry 96 96 03/14/18 22:00 03/15/18 00:00 03/15/18 02:00 Temperature 98.5 F Pulse Rate 79 71 82 Respiratory Rate 21 Blood Pressure 145/76 H Pulse Oximetry 03/15/18 03:49 03/15/18 04:00 03/15/18 06:00 Temperature 98.0 F Pulse Rate 70 68 76 Respiratory Rate 19 18 Blood Pressure 142/76 H Pulse Oximetry Intake & Output 03/14/18 03/15/18 03/15/18 18:59 06:59 18:59 Intake Total 1370 / 1370 1240 / 1240 Output Total 475 / 475 550 / 550 Balance 895 / 895 690 / 690 Weight 96.4 kg Intake: IV 1130 / 1130 1000 / 1000 D5W/Normal Saline Inj 1,000 ML 1000 / 1000 1000 / 1000 @ 75 mls/hr IV.CONT .[id number] RAÚL Rx#:[id number] Heparin/D5W 25,000 U/250 mL 25, 130 / 130 000 unit In 250 ml @ Per Protocol IV.CONT TITRATE PRN Rx #:[id number] Oral 240 / 240 240 / 240 Output: Urine 475 / 475 550 / 550 Other: # Incontinent Voids 3 3 # Bowel Movements 0 0 - Constitutional no acute distress - Routine Neurological Exam alert to self and , unsure of date, knows he is in the hospital but cannot tell me which one or the state (says [place] and then will shake his head no, says yes to [place]) He has mild facial asymmetry, moving all extremities against gravity, no drift, EOMi, PERRL, gait withheld Objective Radiology Results: MRI - acute left temporal frontal infarct Laboratory Results - last 24 hr 03/14/18 03/14/18 03/14/18 10:00 11:16 12:05 WBC RBC Hgb Hct MCV MCH MCHC RDW Plt Count MPV Neut % (Auto) Lymph % (Auto) [place] % (Auto) Eos % (Auto) Baso % (Auto) Neut # (Auto) Lymph # (Auto) [place] # (Auto) Eos # (Auto) Baso # (Auto) WBC Differential Differential Comment APTT 41.1 H Sodium 142 Potassium 4.0 Chloride 109 H Carbon Dioxide 24.0 Anion Gap 9 BUN 16 Creatinine 1.40 H Estimated GFR 50 L POC Glucose Random Glucose 106 Calcium 8.9 Total Bilirubin 0.3 AST 18 ALT 28 Alkaline Phosphatase 70 Total Protein 6.7 Albumin 2.8 L Urine Color Yellow Urine Clarity Clear Urine pH 6.0 Ur Specific [place] 1.016 Urine Protein Negative Urine Glucose (UA) 50 Urine Ketones Negative Urine Occult Blood Large H Urine Nitrate Negative Urine Bilirubin Negative Urine Urobilinogen Less than 2 Ur Leukocyte Esterase Negative Urine RBC 119 H Urine WBC 2 Ur Squamous Epith Cells <1 Micro UA Comment Culture not ind Urine Culture Comments Culture not ind 03/14/18 03/14/18 03/14/18 16:48 20:24 23:54 WBC RBC Hgb Hct MCV MCH MCHC RDW Plt Count MPV Neut % (Auto) Lymph % (Auto) [place] % (Auto) Eos % (Auto) Baso % (Auto) Neut # (Auto) Lymph # (Auto) [place] # (Auto) Eos # (Auto) Baso # (Auto) WBC Differential Differential Comment APTT 37.6 H Sodium Potassium Chloride Carbon Dioxide Anion Gap BUN Creatinine Estimated GFR POC Glucose 114 H 113 H Random Glucose Calcium Total Bilirubin AST ALT Alkaline Phosphatase Total Protein Albumin Urine Color Urine Clarity Urine pH Ur Specific [place] Urine Protein Urine Glucose (UA) Urine Ketones Urine Occult Blood Urine Nitrate Urine Bilirubin Urine Urobilinogen Ur Leukocyte Esterase Urine RBC Urine WBC Ur Squamous Epith Cells Micro UA Comment Urine Culture Comments 03/15/18 03/15/18 04:00 04:00 WBC 9.1 RBC 4.21 L Hgb 12.2 L Hct 35.6 L MCV 84.6 MCH 29.0 MCHC 34.2 RDW 14.0 Plt Count 293 MPV 7.9 Neut % (Auto) 72.4 H Lymph % (Auto) 19.1 [place] % (Auto) 7.6 Eos % (Auto) 0.5 Baso % (Auto) 0.4 Neut # (Auto) 6.6 Lymph # (Auto) 1.7 [place] # (Auto) 0.7 Eos # (Auto) 0.0 Baso # (Auto) 0.0 WBC Differential . Differential Comment Auto diff final APTT Sodium 142 Potassium 3.7 Chloride 110 H Carbon Dioxide 24.8 Anion Gap 7 BUN 11 Creatinine 1.38 H Estimated GFR 51 L POC Glucose Random Glucose 112 H Calcium 8.6 Total Bilirubin 0.3 AST 20 ALT 26 Alkaline Phosphatase 71 Total Protein 6.8 Albumin 2.9 L Urine Color Urine Clarity Urine pH Ur Specific [place] Urine Protein Urine Glucose (UA) Urine Ketones Urine Occult Blood Urine Nitrate Urine Bilirubin Urine Urobilinogen Ur Leukocyte Esterase Urine RBC Urine WBC Ur Squamous Epith Cells Micro UA Comment Urine Culture Comments Review/Management - Review/Management Plan: Left middle cerebral artery territorial infarct, status post interventional radiology procedure with reperfusion expressive aphasia improving, strength has improved Ok to normalize BP but not below 120 systolic ok to start PT Addendum note- agree with PA note would change to po AC had eliquis in the past unclear if full dose or not could use Xarelto if no CI. On heparin now. pt-ot-st,rehab consult if not done.
--- NOTE | 2018-03-15 10:26 | P.PNCC ---
Subjective Subjective Remarks/Hospital Course: Patient is a 68-year-old male with a past medical history of coronary artery disease with previous stent placements and hypertension, who presented to [facility] ED as a stroke alert. The patient had abrupt onset of right-sided weakness, associated with mild facial droop and marked expressive aphasia. 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 However, the patient was only using half the dose of Eliquis. Due to altered mental status, he underwent a CT brain, which showed mild volume loss, otherwise unremarkable. A CTA of the head and neck was obtained, which showed a left ICA occlusion. He was seen by Dr. Sotomayor from neurology service. In addition, the patient went to IR, where he underwent thrombectomy. A chest x-ray in the ED showed no acute cardiopulmonary disease. The patient received heparin in the ED. When seen, the patient is awake, follows commands; however, expressive aphasia noted. He is able to move all 4 extremities. There is no history of previous CVA. 03/14 No events overnight, on Heparin drip. Patient's aphasia is better today. For MRI brain. 03/15 Patient is lying in be din NAD. Afebrile. On Heparin drip. MRI brain yesterday acute infaction involving left temporal frontal lobe. Objective Vital Signs / I&O: Vital Signs 03/14/18 12:00 03/14/18 14:00 03/14/18 16:00 Temperature 98.5 F 98.9 F Pulse Rate 72 69 68 Respiratory Rate 18 17 Blood Pressure 130/67 149/82 H Pulse Oximetry 96 99 03/14/18 16:26 03/14/18 18:00 03/14/18 20:00 Temperature 98.6 F Pulse Rate 67 79 Respiratory Rate 23 Blood Pressure 170/78 H Pulse Oximetry 95 03/14/18 21:36 03/14/18 21:37 03/14/18 22:00 Temperature Pulse Rate 79 79 Respiratory Rate 20 Blood Pressure Pulse Oximetry 96 96 03/15/18 00:00 03/15/18 02:00 03/15/18 03:49 Temperature 98.5 F Pulse Rate 71 82 70 Respiratory Rate 21 19 Blood Pressure 145/76 H Pulse Oximetry 03/15/18 04:00 03/15/18 06:00 03/15/18 10:03 Temperature 98.0 F Pulse Rate 68 76 78 Respiratory Rate 18 15 Blood Pressure 142/76 H Pulse Oximetry 98 Intake & Output 03/14/18 03/15/18 03/15/18 18:59 06:59 18:59 Intake Total 1370 / 1370 1240 / 1240 Output Total 475 / 475 550 / 550 Balance 895 / 895 690 / 690 Weight 96.4 kg Intake: IV 1130 / 1130 1000 / 1000 D5W/Normal Saline Inj 1,000 ML 1000 / 1000 1000 / 1000 @ 75 mls/hr IV.CONT .[id number] Rx#:[id number] Heparin/D5W 25,000 U/250 mL 25, 130 / 130 000 unit In 250 ml @ Per Protocol IV.CONT TITRATE PRN Rx #:[id number] Oral 240 / 240 240 / 240 Output: Urine 475 / 475 550 / 550 Other: # Incontinent Voids 3 3 # Bowel Movements 0 0 Result Diagrams: 03/15/18 04:00 03/15/18 04:00 Other Results: Laboratory Results - last 12 hr 03/14/18 03/15/18 03/15/18 23:54 04:00 04:00 WBC 9.1 RBC 4.21 L Hgb 12.2 L Hct 35.6 L MCV 84.6 MCH 29.0 MCHC 34.2 RDW 14.0 Plt Count 293 MPV 7.9 Neut % (Auto) 72.4 H Lymph % (Auto) 19.1 [place] % (Auto) 7.6 Eos % (Auto) 0.5 Baso % (Auto) 0.4 Neut # (Auto) 6.6 Lymph # (Auto) 1.7 [place] # (Auto) 0.7 Eos # (Auto) 0.0 Baso # (Auto) 0.0 WBC Differential . Differential Comment Auto diff final APTT Sodium 142 Potassium 3.7 Chloride 110 H Carbon Dioxide 24.8 Anion Gap 7 BUN 11 Creatinine 1.38 H Estimated GFR 51 L POC Glucose 113 H Random Glucose 112 H Calcium 8.6 Total Bilirubin 0.3 AST 20 ALT 26 Alkaline Phosphatase 71 Total Protein 6.8 Albumin 2.9 L 03/15/18 09:45 WBC RBC Hgb Hct MCV MCH MCHC RDW Plt Count MPV Neut % (Auto) Lymph % (Auto) [place] % (Auto) Eos % (Auto) Baso % (Auto) Neut # (Auto) Lymph # (Auto) [place] # (Auto) Eos # (Auto) Baso # (Auto) WBC Differential Differential Comment APTT 43.8 H Sodium Potassium Chloride Carbon Dioxide Anion Gap BUN Creatinine Estimated GFR POC Glucose Random Glucose Calcium Total Bilirubin AST ALT Alkaline Phosphatase Total Protein Albumin Imaging: Cerebral Angiography 03/13/18 00:00 CONCLUSION: 1. Uncomplicated Thrombectomy of left carotid terminus and proximal left middle cerebral artery lesion with rastafari of TICI3 flow Chest X-Ray 03/13/18 09:27 CONCLUSION: 1. No acute cardiopulmonary disease. Head CT 03/13/18: CONCLUSION: 1. Mild volume loss otherwise unremarkable. Findings of this examination were reviewed by [Dr. Mckeon with Dr. Johnson at 9:35 AM on March 13, 2018. ] Head CTA 03/13/18 09:27 CONCLUSION: 1. Left internal carotid artery is occluded. 2. There is focal stenosis of the M2 division of the left middle cerebral artery as described above. Neck CTA 03/13/18: CONCLUSION: 1. Left ICA occlusion. Head MRI 03/14/18 00:00 CONCLUSION: 1. There is evidence of an acute infarction involving the left temporal frontal lobe. Objective Remarks: GENERAL: Patient is 68 yo lying in bed in NAD SKIN: Warm and dry. HEAD: Normocephalic. EYES: No scleral icterus. No injection or drainage. NECK: Supple, trachea midline. No JVD or lymphadenopathy. CARDIOVASCULAR: Regular rate and rhythm without murmurs, gallops, or rubs. RESPIRATORY: Breath sounds equal bilaterally. No accessory muscle use. GASTROINTESTINAL: Abdomen soft, non-tender, nondistended. MUSCULOSKELETAL: No cyanosis, or edema. Neuro: Awake and alert. Assessment and Plan - Assessment and Plan Plan: 1. Resp Insuff 2. Left MCA CVA 3. Left internal carotid artery occlusion, status post thrombectomy. 4. History of CAD. 5. Hypertension. 6. Mild Leukocytosis- resolved 7. Mild YUMIKO Plan Neuro: Monitor neuro status closely and avoid any sedatives. s/p embolectomy by IR. CT brain: negative for acute disease. CT of the head and neck showed left internal carotid artery occlusion. On Heparin drip per neuro- Dr. Sotomayor. MRI brain 03/14: Acute infarction left frontal temporal lobe Pulm: Continue with Oxygen maintain sats > 92%. CV: Monitor HR and BP and maintain MAP >65 mmHg. Echo showed EF 45-50% : Monitor renal function, I's and O's and electrolyte replacement per protocol. d/c IVF GI: on Pepcid for GI prophylaxis. On Po diet ID: Monitor for signs of infection(fever and WBC). Murillo culture if spikes a fever. CXR in ED negative for acute cardiopulmonary disease. . Endo: SSI if needed for glycemic control. heme: Monitor CBC and coags. GI prophylaxis - on Pepcid DVT prophylaxis- on heparin drip . Spoke to patient's daughter Sandi Ashley updated her on patient's condition. All questions answered. Will sign off and transfer care to [facility] Level 2
[2018-03-15] MEDS: Senna/Docusate Sodium 8.6/50 MG Tablet PO SCH ×2 (10:39→21:15)
[2018-03-15] MEDS: Famotidine PF Inj 20 MG/2 ML Vial IV.PUSH SCH ×2 (10:39→21:14)
[2018-03-15] MEDS: Heparin Drip 25,000 UNIT/250 ML BAG IV.CONT PRN (12:25)
[2018-03-16 04:25] LABS: Baso # (Auto) 0.1 th/mm3 (0.0-0.2); Baso % (Auto) 0.6 % (0.0-2.0); Eos # (Auto) 0.1 th/mm3 (0.0-0.4); Eos % (Auto) 0.9 % (0.0-4.0); Hematocrit 38.9 % (39.0-51.0); Hemoglobin 13.2 gm/dL (13.0-17.0); Lymph # (Auto) 1.8 th/mm3 (1.0-4.8); Lymph % (Auto) 17.9 % (9.0-44.0); Mean Corpuscular HGB Conc 33.9 % (32.0-36.0); Mean Corpuscular Hemoglobin 29.2 pg (27.0-34.0); Mean Corpuscular Volume 86.2 fL (80.0-100.0); Mono # (Auto) 0.6 th/mm3 (0.0-0.9); Mono % (Auto) 6.1 % (0.0-8.0); Neut # (Auto) 7.5 th/mm3 (1.8-7.7); Neut % (Auto) 74.5 % (16.0-70.0); Platelet Count 327 th/mm3 (150-450); Red Blood Count 4.51 mil/mm3 (4.50-5.90); Red Cell Distribution Width 13.9 % (11.6-17.2)
[2018-03-16 04:43] LABS: Calcium 9.4 mg/dL (8.5-10.1); Carbon Dioxide 21.7 meq/L (21.0-32.0); Magnesium 1.9 mg/dL (1.5-2.5); Potassium 3.6 meq/L (3.5-5.1)
[2018-03-16] MEDS: Heparin Drip 25,000 UNIT/250 ML BAG IV.CONT PRN (06:24)
[2018-03-16] MEDS: Insulin NovoLOG Aspart Correctional Sugar Inj SQ SCH ×5 (06:26→17:56)
[2018-03-16] MEDS: Chlorhexidine Gluconate 2% 1 Pack (2 Cloths) TOPICAL SCH (06:30)
--- NOTE | 2018-03-16 08:34 | P.PN ---
Physical Exam Vital signs: Vital Signs 03/15/18 10:00 03/15/18 10:03 03/15/18 12:00 Temperature 99.1 F Pulse Rate 72 78 66 Respiratory Rate 15 23 Blood Pressure 141/68 H Pulse Oximetry 98 95 03/15/18 14:00 03/15/18 16:00 03/15/18 18:00 Temperature 98.5 F Pulse Rate 80 70 70 Respiratory Rate 22 Blood Pressure 146/89 H Pulse Oximetry 93 L 03/15/18 20:00 03/15/18 21:26 03/15/18 22:00 Temperature 98.8 F Pulse Rate 76 76 78 Respiratory Rate 19 Blood Pressure 169/86 H Pulse Oximetry 96 94 L 03/16/18 00:00 03/16/18 02:00 03/16/18 03:30 Temperature 98.5 F Pulse Rate 77 80 70 Respiratory Rate 19 Blood Pressure 139/73 Pulse Oximetry 96 03/16/18 03:31 03/16/18 04:00 03/16/18 06:00 Temperature 98.3 F Pulse Rate 82 85 Respiratory Rate Blood Pressure 129/86 Pulse Oximetry 93 L Intake & Output 03/15/18 03/16/18 03/16/18 18:59 06:59 18:59 Intake Total 730 / 730 730 / 730 Output Total 1200 / 1200 1200 / 1200 Balance -470 / -470 -470 / -470 Weight 96.4 kg Intake: IV 250 / 250 250 / 250 Heparin/D5W 25,000 U/250 mL 25, 250 / 250 250 / 250 000 unit In 250 ml @ Per Protocol IV.CONT TITRATE PRN Rx #:[id number] Oral 480 / 480 480 / 480 Output: Urine 1200 / 1200 1200 / 1200 Other: # Incontinent Voids 3 # Bowel Movements 0 Narrative: Subjective Patient is a 68-year-old male with a past medical history of coronary artery disease with previous stent placements and hypertension, who presented to [facility] ED as a stroke alert. The patient had abrupt onset of right-sided weakness, associated with mild facial droop and marked expressive aphasia. 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 However, the patient was only using half the dose of Eliquis. Due to altered mental status, he underwent a CT brain, which showed mild volume loss, otherwise unremarkable. A CTA of the head and neck was obtained, which showed a left ICA occlusion. He was seen by Dr. Sotomayor from neurology service. In addition, the patient went to IR, where he underwent thrombectomy. A chest x-ray in the ED showed no acute cardiopulmonary disease. The patient received heparin in the ED. When seen, the patient is awake, follows commands; however, expressive aphasia noted. He is able to move all 4 extremities. There is no history of previous CVA. 03/14 No events overnight, on Heparin drip. Patient's aphasia is better today. For MRI brain. 03/15 Patient is lying in be din NAD. Afebrile. On Heparin drip. MRI brain yesterday acute infarction involving left temporal frontal lobe. 03/16 In bed . Speech improving. no new motor or sensory deficit. No headache. No n/v/d/c. Denies fever or chills. Daughter wants to discuss with Dr Sotomayor neurology / I discussed with Dr Sotomayor, she will call daughter. No change in vision No n/v/d/c Eating well o problems with swallowing. Physical exam GENERAL: 68 yo male, in nad CARDIOVASCULAR: Regular rate and rhythm without murmurs, gallops, or rubs. RESPIRATORY: Breath sounds equal bilaterally. No accessory muscle use. GASTROINTESTINAL: Abdomen soft, non-tender, nondistended. MUSCULOSKELETAL: No cyanosis, or edema. BACK: Nontender without obvious deformity. No CVA tenderness. NEURO: Awake and alert. 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 History of CAD. Hypertension. Mild Leukocytosis- resolved Mild YUMIKO H/o DVT Neuro: Monitor neuro status closely and avoid any sedatives. s/p left hemispheric stroke, s/p thrombectomy CT brain: negative for acute disease. CT of the head and neck showed left internal carotid artery occlusion. On Heparin drip per neuro- Dr. Sotomayor. MRI brain 03/14: Acute infarction left frontal temporal lobe Discussed with Russ neuro.tariy appreciate recommendations, plan to recheck cta cow and ca as f/u Start eliquis 5mg bid as patient did not take eliquis for > 2 weeks and echo nl EF Monitor on telemetry PT/OT/ST Rehab consult. Consult cardio . May need loop recorder Check Doppler LE as h/o dvt Keep SBP into a higher side , prn vasotec if SBP> 180 Pulm: Continue with Oxygen maintain sats > 92%. CV: Monitor HR and BP and maintain MAP >65 mmHg. Echo showed EF 45-50% : Monitor renal function, I's and O's and electrolyte replacement per protocol. d/c IVF GI: on Pepcid for GI prophylaxis. On Po diet ID: Monitor for signs of infection(fever and WBC). Murillo culture if spikes a fever. CXR in ED negative for acute cardiopulmonary disease. . Endo: SSI if needed for glycemic control. heme: Monitor CBC and coags. GI prophylaxis - on Pepcid DVT prophylaxis- on heparin drip . Discussed with the patient, Russ , ICU nurse Transfer to med surg when OK with neuro Results - Labs CBC & Chem 7: 03/16/18 04:02 03/16/18 04:02 Laboratory Results - last 24 hr 03/15/18 03/15/18 03/15/18 09:45 12:48 16:45 WBC RBC Hgb Hct MCV MCH MCHC RDW Plt Count MPV Neut % (Auto) Lymph % (Auto) [place] % (Auto) Eos % (Auto) Baso % (Auto) Neut # (Auto) Lymph # (Auto) [place] # (Auto) Eos # (Auto) Baso # (Auto) WBC Differential Differential Comment APTT 43.8 H 35.0 H D Sodium Potassium Chloride Carbon Dioxide Anion Gap BUN Creatinine Estimated GFR POC Glucose 118 H Random Glucose Calcium Magnesium 03/15/18 03/16/18 03/16/18 17:38 00:51 04:02 WBC 10.0 RBC 4.51 Hgb 13.2 Hct 38.9 L MCV 86.2 MCH 29.2 MCHC 33.9 RDW 13.9 Plt Count 327 MPV 8.0 Neut % (Auto) 74.5 H Lymph % (Auto) 17.9 [place] % (Auto) 6.1 Eos % (Auto) 0.9 Baso % (Auto) 0.6 Neut # (Auto) 7.5 Lymph # (Auto) 1.8 [place] # (Auto) 0.6 Eos # (Auto) 0.1 Baso # (Auto) 0.1 WBC Differential . Differential Comment Auto diff final APTT Sodium Potassium Chloride Carbon Dioxide Anion Gap BUN Creatinine Estimated GFR POC Glucose 115 H 107 Random Glucose Calcium Magnesium 03/16/18 03/16/18 04:02 04:02 WBC RBC Hgb Hct MCV MCH MCHC RDW Plt Count MPV Neut % (Auto) Lymph % (Auto) [place] % (Auto) Eos % (Auto) Baso % (Auto) Neut # (Auto) Lymph # (Auto) [place] # (Auto) Eos # (Auto) Baso # (Auto) WBC Differential Differential Comment APTT 43.0 H D Sodium 141 Potassium 3.6 Chloride 108 H Carbon Dioxide 21.7 Anion Gap 11 BUN 12 Creatinine 1.30 Estimated GFR 55 L POC Glucose Random Glucose 107 H Calcium 9.4 D Magnesium 1.9 - Imaging Impressions Head MRI 03/14/18 00:00 CONCLUSION: 1. There is evidence of an acute infarction involving the left temporal frontal lobe.
[2018-03-16] MEDS: Famotidine PF Inj 20 MG/2 ML Vial IV.PUSH SCH ×2 (09:41→22:34)
[2018-03-16] MEDS: Senna/Docusate Sodium 8.6/50 MG Tablet PO SCH ×2 (09:41→22:34)
--- NOTE | 2018-03-16 11:25 | P.PN ---
Subjective Interval history: aphasia better states he was no longer on eliquis for >2 weeks took it due to hx dvt 2 yrs ago? no new complaints. Physical Exam Vital signs: Vital Signs 03/15/18 12:00 03/15/18 14:00 03/15/18 16:00 Temperature 99.1 F 98.5 F Pulse Rate 66 80 70 Respiratory Rate 23 22 Blood Pressure 141/68 H 146/89 H Pulse Oximetry 95 93 L 03/15/18 18:00 03/15/18 20:00 03/15/18 21:26 Temperature 98.8 F Pulse Rate 70 76 76 Respiratory Rate 19 Blood Pressure 169/86 H Pulse Oximetry 96 94 L 03/15/18 22:00 03/16/18 00:00 03/16/18 02:00 Temperature 98.5 F Pulse Rate 78 77 80 Respiratory Rate Blood Pressure 139/73 Pulse Oximetry 96 03/16/18 03:30 03/16/18 03:31 03/16/18 04:00 Temperature 98.3 F Pulse Rate 70 82 Respiratory Rate 19 Blood Pressure 129/86 Pulse Oximetry 93 L 03/16/18 06:00 03/16/18 09:30 Temperature Pulse Rate 85 87 Respiratory Rate 20 Blood Pressure Pulse Oximetry 92 L Intake & Output 03/15/18 03/16/18 03/16/18 18:59 06:59 18:59 Intake Total 730 / 730 730 / 730 Output Total 1200 / 1200 1200 / 1200 Balance -470 / -470 -470 / -470 Weight 96.4 kg Intake: IV 250 / 250 250 / 250 Heparin/D5W 25,000 U/250 mL 25, 250 / 250 250 / 250 000 unit In 250 ml @ Per Protocol IV.CONT TITRATE PRN Rx #:[id number] Oral 480 / 480 480 / 480 Output: Urine 1200 / 1200 1200 / 1200 Other: # Incontinent Voids 3 # Bowel Movements 0 Narrative: awake alert expressive aphasia stated name thought he was at [facility] February 1987 can repeat no dysarthria no facial motor intact gait defer to PT Results - Labs CBC & Chem 7: 03/16/18 04:02 03/16/18 04:02 Laboratory Results - last 24 hr 03/15/18 03/15/18 03/15/18 12:48 16:45 17:38 WBC RBC Hgb Hct MCV MCH MCHC RDW Plt Count MPV Neut % (Auto) Lymph % (Auto) [place] % (Auto) Eos % (Auto) Baso % (Auto) Neut # (Auto) Lymph # (Auto) [place] # (Auto) Eos # (Auto) Baso # (Auto) WBC Differential Differential Comment APTT 35.0 H D Sodium Potassium Chloride Carbon Dioxide Anion Gap BUN Creatinine Estimated GFR POC Glucose 118 H 115 H Random Glucose Calcium Magnesium 03/16/18 03/16/18 03/16/18 00:51 04:02 04:02 WBC 10.0 RBC 4.51 Hgb 13.2 Hct 38.9 L MCV 86.2 MCH 29.2 MCHC 33.9 RDW 13.9 Plt Count 327 MPV 8.0 Neut % (Auto) 74.5 H Lymph % (Auto) 17.9 [place] % (Auto) 6.1 Eos % (Auto) 0.9 Baso % (Auto) 0.6 Neut # (Auto) 7.5 Lymph # (Auto) 1.8 [place] # (Auto) 0.6 Eos # (Auto) 0.1 Baso # (Auto) 0.1 WBC Differential . Differential Comment Auto diff final APTT Sodium 141 Potassium 3.6 Chloride 108 H Carbon Dioxide 21.7 Anion Gap 11 BUN 12 Creatinine 1.30 Estimated GFR 55 L POC Glucose 107 Random Glucose 107 H Calcium 9.4 D Magnesium 1.9 03/16/18 04:02 WBC RBC Hgb Hct MCV MCH MCHC RDW Plt Count MPV Neut % (Auto) Lymph % (Auto) [place] % (Auto) Eos % (Auto) Baso % (Auto) Neut # (Auto) Lymph # (Auto) [place] # (Auto) Eos # (Auto) Baso # (Auto) WBC Differential Differential Comment APTT 43.0 H D Sodium Potassium Chloride Carbon Dioxide Anion Gap BUN Creatinine Estimated GFR POC Glucose Random Glucose Calcium Magnesium Assessment and Plan - Plan s/p left hemispheric stroke hx dvt s/p thrombectomy -will recheck cta cow and ca as f/u can put on eliquis 5mg bid echo was ok telemetry pt-ot-st rehab consult. flp may need loop recorder check LE for dvt. will d/w daughter.
[2018-03-16 12:00] LABS: Chol/HDL Ratio 2.76 Ratio; HDL Cholesterol 43.1 mg/dL (40.0-60.0)
--- NOTE | 2018-03-16 14:57 | US ---
EXAM DATE: 03/16/2018 2:36 PM EDT AGE/SEX: 68 years / Male INDICATIONS: Thrombosis of lower extremity. CLINICAL DATA: This is the patient's initial encounter. Patient reports that signs and symptoms have been present for 1 day and indicates a pain score of 0/10. MEDICAL/SURGICAL HISTORY: . Coronary artery disease. Hypertension. Myocardial infarction. . Cardiac stents. COMPARISON: No prior exams available for comparison. TECHNIQUE: Venous ultrasound of both lower extremities was performed from the inguinal ligament to t he proximal calf. Real-time, color Doppler and spectral tracing, compression and augmentation techni ques were used. FINDINGS: Right Leg: Normal compression of the deep venous system from the inguinal region to the proximal ray f. No echogenic clot is seen. Normal response of the venous system to augmentation and respiration. Left Leg: Normal compression of the deep venous system from the inguinal region to the proximal calf . No echogenic clot is seen. Normal response of the venous system to augmentation and respiration. Other: None. CONCLUSION: 1. The study is negative for bilateral lower extremity deep venous thrombosis. Electronically signed by: Gopal Kimball MD 03/16/2018 2:56 PM EDT
--- NOTE | 2018-03-16 20:29 | CT ---
EXAM DATE: 03/16/2018 8:25 PM EDT AGE/SEX: 68 years / Male INDICATIONS: Follow up infarct. CLINICAL DATA: This is the patient's subsequent encounter. Patient reports that signs and symptoms h ave been present for 2 days and indicates a pain score of 0/10. MEDICAL/SURGICAL HISTORY: Hypertension. Cardiovascular disease. Myocardial infarction None. RADIATION DOSE: 56.35 CTDI (mGy) COMPARISON: [facility] [place], MR HEAD W/O CONTRAST, 03/14/2018. . TECHNIQUE: CT of the head without contrast. Using automated exposure control and adjustment of the mA and/or kV according to patient size, radiation dose was kept as low as reasonably achievable to ob tain optimal diagnostic quality images. DICOM format image data is available electronically for revi ew and comparison. FINDINGS: Cerebrum: Hypodensity in the left frontal lobe matches the territory of acute infarct seen on MRI of 03/14/2018. No evidence of acute hemorrhage. Mild mass effect. No midline shift. Posterior Fossa: The cerebellum and brainstem are intact. The 4th ventricle is midline. The cerebe llopontine angle is unremarkable. Extracranial: The visualized portion of the orbits is intact. Skull: The calvaria is intact. No evidence of skull fracture. CONCLUSION: Left frontal lobe infarct again seen. No evidence of acute hemorrhage. Mild mass effect but no midlin e shift. . Electronically signed by: Dao Laureano MD 03/16/2018 8:27 PM EDT
--- NOTE | 2018-03-16 21:19 | CT ---
EXAM DATE: 03/16/2018 9:09 PM EDT AGE/SEX: 68 years / Male INDICATIONS: Follow up infarct; abnormal MRI. CLINICAL DATA: This is the patient's subsequent encounter. Patient reports that signs and symptoms h ave been present for 2 days and indicates a pain score of 0/10. MEDICAL/SURGICAL HISTORY: Hypertension. Cardiovascular disease. Myocardial infarction None. RADIATION DOSE: 10.33 CTDI (mGy) ; Combined studies COMPARISON: [facility], CTA HEAD W CONTRAST W 3D, 03/13/2018. . TECHNIQUE: Volumetric scanning was performed using a multi-row detector CT scanner during bolus infu mady of 96 ml Omnipaque 350 (iohexol) nonionic water-soluble contrast as a cumulative dose for multi ple exams. The data was post processed with a variety of visualization algorithms including full vo lume maximum intensity projection, multi-planar sliding thin slab reformation, curved planar reformat ion, and surface rendering techniques. Using automated exposure control and adjustment of the mA and /or kV according to patient size, radiation dose was kept as low as reasonably achievable to obtain o ptimal diagnostic quality images. DICOM format image data is available electronically for review and comparison. FINDINGS: The left internal carotid artery is no longer occluded. The previously identified left MCA thrombus o r stenosis just distal to the bifurcation is not seen on the current study. No other significant inte rval change. Intracranial arteries are otherwise widely patent. CONCLUSION: 1. Left ICA no longer occluded. 2. Focal stenosis or thrombus is distal to the MCA bifurcation is no longer seen. Electronically signed by: Dao Laureano MD 03/16/2018 9:17 PM EDT
--- NOTE | 2018-03-16 21:36 | CT ---
EXAM DATE: 03/16/2018 9:09 PM EDT AGE/SEX: 68 years / Male INDICATIONS: Follow up infarct; abnormal MRI. CLINICAL DATA: This is the patient's subsequent encounter. Patient reports that signs and symptoms h ave been present for 2 days and indicates a pain score of 0/10. MEDICAL/SURGICAL HISTORY: Hypertension. Cardiovascular disease. Myocardial infarction None. RADIATION DOSE: 10.33 CTDI (mGy) ; Combined studies COMPARISON: [facility], CTA NECK W CONTRAST W 3D, 03/13/2018. . TECHNIQUE: Volumetric scanning was performed using a multirow detector CT scanner during bolus infus ion of 96 ml Omnipaque 350 (iohexol) nonionic water-soluble contrast as a cumulative dose for multip le exams. The data was postprocessed with a variety of visualization algorithms including full-volu me maximum intensity projection, multiplanar sliding thin-slab reformation, curved-planar reformation , and surface-rendering techniques. Using automated exposure control and adjustment of the mA and/or kV according to patient size, radiation dose was kept as low as reasonably achievable to obtain opti mal diagnostic quality images. DICOM format image data is available electronically for review and co mparison. Percent stenosis is calculated using the diameter of the stenotic region over the diameter of the nor mal distal internal carotid artery. FINDINGS: Occlusion of the left internal carotid artery is no longer seen. There is a clot at the bifurcation e xtending into the left external carotid artery and there is now a short segment occlusion of the left external carotid artery measuring 5 mm in length. Left internal carotid artery is widely patent. No other significant interval change. CONCLUSION: 1. Left internal carotid artery no longer occluded. 2. New short segment proximal occlusion of the left external carotid artery. Electronically signed by: Dao Laureano MD 03/16/2018 9:34 PM EDT
[2018-03-17] MEDS: Insulin NovoLOG Aspart Correctional Sugar Inj SQ SCH ×3 (00:11→11:10)
[2018-03-17] MEDS: Heparin Drip 25,000 UNIT/250 ML BAG IV.CONT PRN (01:59)
[2018-03-17] MEDS: Chlorhexidine Gluconate 2% 1 Pack (2 Cloths) TOPICAL SCH (05:25)
[2018-03-17] MEDS: Famotidine PF Inj 20 MG/2 ML Vial IV.PUSH SCH ×2 (08:02→21:12)
[2018-03-17] MEDS: Senna/Docusate Sodium 8.6/50 MG Tablet PO SCH ×2 (08:02→21:11)
--- NOTE | 2018-03-17 09:42 | P.PN ---
Physical Exam Vital signs: Vital Signs 03/16/18 12:00 03/16/18 16:00 03/16/18 17:15 Temperature 98.6 F 98.1 F Pulse Rate 93 H 89 90 Respiratory Rate 16 20 14 Blood Pressure 136/79 146/88 H Pulse Oximetry 94 L 94 L 03/16/18 20:00 03/17/18 00:00 03/17/18 00:30 Temperature 98.1 F 98.1 F Pulse Rate 86 76 76 Respiratory Rate 18 17 Blood Pressure 121/64 127/67 Pulse Oximetry 94 L 92 L 03/17/18 01:24 03/17/18 03:42 03/17/18 04:00 Temperature 98.2 F Pulse Rate 69 82 Respiratory Rate 18 16 17 Blood Pressure 107/72 Pulse Oximetry 93 L 94 L 03/17/18 08:00 03/17/18 09:28 Temperature 98.1 F Pulse Rate 82 80 Respiratory Rate 20 16 Blood Pressure 119/67 Pulse Oximetry 90 L Intake & Output 03/16/18 03/17/18 03/17/18 18:59 06:59 18:59 Intake Total 250 / 250 Output Total 925 / 925 Balance -675 / -675 Weight 95.3 kg Intake: IV 250 / 250 Heparin/D5W 25,000 U/250 mL 25, 250 / 250 000 unit In 250 ml @ Per Protocol IV.CONT TITRATE PRN Rx #:[id number] Output: Urine 925 / 925 Other: Date of Last Bowel Movement 03/17/18 # Bowel Movements 1 Narrative: Subjective Patient is a 68-year-old male with a past medical history of coronary artery disease with previous stent placements and hypertension, who presented to [facility] ED as a stroke alert. The patient had abrupt onset of right-sided weakness, associated with mild facial droop and marked expressive aphasia. 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 However, the patient was only using half the dose of Eliquis. Due to altered mental status, he underwent a CT brain, which showed mild volume loss, otherwise unremarkable. A CTA of the head and neck was obtained, which showed a left ICA occlusion. He was seen by Dr. Sotomayor from neurology service. In addition, the patient went to , where he underwent thrombectomy. A chest x-ray in the ED showed no acute cardiopulmonary disease. The patient received heparin in the ED. When seen, the patient is awake, follows commands; however, expressive aphasia noted. He is able to move all 4 extremities. There is no history of previous CVA. 03/14 No events overnight, on Heparin drip. Patient's aphasia is better today. For MRI brain. 03/15 Patient is lying in be din NAD. Afebrile. On Heparin drip. MRI brain yesterday acute infarction involving left temporal frontal lobe. 03/16 In bed . Speech improving. no new motor or sensory deficit. No headache. No n/v/d/c. Denies fever or chills. Daughter wants to discuss with Dr Sotomayor neurology / I discussed with Dr Sotomayor, she will call daughter. No change in vision No n/v/d/c Eating well no problems with swallowing. 03/17 Patient says he feels improving. Speech improved significantly. Patient says he was not taking eliquis for more than 2 weeks. Also discussed with the daughter at bedside. All questions answered to the best of my ability. Patient denies new motor or sensory deficit.l NO headache or change in vision. Physical exam GENERAL: 68 yo male, in nad CARDIOVASCULAR: Regular rate and rhythm without murmurs, gallops, or rubs. RESPIRATORY: Breath sounds equal bilaterally. No accessory muscle use. GASTROINTESTINAL: Abdomen soft, non-tender, nondistended. MUSCULOSKELETAL: No cyanosis, or edema. BACK: Nontender without obvious deformity. No CVA tenderness. NEURO: Awake and alert. 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 History of CAD. Hypertension. Mild Leukocytosis- resolved Mild YUMIKO H/o DVT Neuro: Monitor neuro status closely and avoid any sedatives. s/p left hemispheric stroke, s/p thrombectomy CT brain: negative for acute disease. CT of the head and neck showed left internal carotid artery occlusion. On Heparin drip per neuro- Dr. Sotomayor. MRI brain 03/14: Acute infarction left frontal temporal lobe Discussed with Russ leyva appreciate recommendations, cta cow and ca as f/u. Imaging reviewed and findings discused with the patient and the daughter at bedside. Start eliquis 5mg bid as patient did not take eliquis for > 2 weeks . DC heparin IV echo nl EF Monitor on telemetry PT/OT/ST Rehab consult. Consult cardio . May need loop recorder Check Doppler LE as h/o dvt Keep SBP into a higher side , prn vasotec if SBP> 180 Pulm: Continue with Oxygen maintain sats > 92%. CV: Monitor HR and BP and maintain MAP >65 mmHg. Echo showed EF 45-50% : Monitor renal function, I's and O's and electrolyte replacement per protocol. d/c IVF GI: on Pepcid for GI prophylaxis. On Po diet ID: Monitor for signs of infection(fever and WBC). Murillo culture if spikes a fever. CXR in ED negative for acute cardiopulmonary disease. . Endo: SSI if needed for glycemic control. heme: Monitor CBC and coags. GI prophylaxis - on Pepcid DVT prophylaxis- on heparin drip . Discussed with the patient, nurse Results - Labs CBC & Chem 7: 03/16/18 04:02 03/16/18 04:02 Laboratory Results - last 24 hr 03/16/18 03/16/18 03/16/18 04:02 12:00 16:52 APTT POC Glucose 104 111 H Triglycerides 96 Cholesterol 119 L LDL Cholesterol, Calc 57 HDL Cholesterol 43.1 Cholesterol/HDL Ratio 2.76 03/16/18 03/17/18 03/17/18 17:38 00:06 05:13 APTT 42.1 H POC Glucose 103 98 Triglycerides Cholesterol LDL Cholesterol, Calc HDL Cholesterol Cholesterol/HDL Ratio 03/17/18 07:11 APTT POC Glucose 108 Triglycerides Cholesterol LDL Cholesterol, Calc HDL Cholesterol Cholesterol/HDL Ratio - Imaging Impressions Head CTA 03/16/18 00:00 CONCLUSION: 1. Left ICA no longer occluded. 2. Focal stenosis or thrombus is distal to the MCA bifurcation is no longer seen. Neck CTA 03/16/18 00:00 CONCLUSION: 1. Left internal carotid artery no longer occluded. 2. New short segment proximal occlusion of the left external carotid artery. Venous Doppler Study 03/16/18 00:00 CONCLUSION: 1. The study is negative for bilateral lower extremity deep venous thrombosis. Head CT 03/16/18 20:17 CONCLUSION: Left frontal lobe infarct again seen. No evidence of acute hemorrhage. Mild mass effect but no midline shift. .
[2018-03-18] MEDS: Famotidine PF Inj 20 MG/2 ML Vial IV.PUSH SCH (08:41)
[2018-03-18] MEDS: Senna/Docusate Sodium 8.6/50 MG Tablet PO SCH (08:41)
--- NOTE | 2018-03-18 09:04 | P.PN ---
Physical Exam Vital signs: Vital Signs 03/17/18 09:28 03/17/18 12:00 03/17/18 16:51 Temperature 97.6 F 98.1 F Pulse Rate 80 89 70 Respiratory Rate 16 20 20 Blood Pressure 126/61 126/75 Pulse Oximetry 95 93 L 03/17/18 20:00 03/18/18 00:00 03/18/18 01:24 Temperature 98.9 F 98.7 F Pulse Rate 78 80 Respiratory Rate 18 18 18 Blood Pressure 121/72 107/60 Pulse Oximetry 96 95 03/18/18 04:00 03/18/18 05:03 03/18/18 08:00 Temperature 98.4 F 97.9 F Pulse Rate 80 81 Respiratory Rate 18 18 20 Blood Pressure 127/68 110/59 L Pulse Oximetry 93 L 93 L Intake & Output 03/17/18 03/18/18 03/18/18 18:59 06:59 18:59 Output Total 50 / 50 Balance -50 / -50 Weight 95.5 kg Output: Urine 50 / 50 Other: # Voids 1 Date of Last Bowel Movement 03/17/18 03/18/18 # Bowel Movements 1 Narrative: Subjective Patient is a 68-year-old male with a past medical history of coronary artery disease with previous stent placements and hypertension, who presented to [facility] ED as a stroke alert. The patient had abrupt onset of right-sided weakness, associated with mild facial droop and marked expressive aphasia. 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 However, the patient was only using half the dose of Eliquis. Due to altered mental status, he underwent a CT brain, which showed mild volume loss, otherwise unremarkable. A CTA of the head and neck was obtained, which showed a left ICA occlusion. He was seen by Dr. Sotomayor from neurology service. In addition, the patient went to IR, where he underwent thrombectomy. A chest x-ray in the ED showed no acute cardiopulmonary disease. The patient received heparin in the ED. When seen, the patient is awake, follows commands; however, expressive aphasia noted. He is able to move all 4 extremities. There is no history of previous CVA. 03/14 No events overnight, on Heparin drip. Patient's aphasia is better today. For MRI brain. 03/15 Patient is lying in be din NAD. Afebrile. On Heparin drip. MRI brain yesterday acute infarction involving left temporal frontal lobe. 03/16 In bed . Speech improving. no new motor or sensory deficit. No headache. No n/v/d/c. Denies fever or chills. Daughter wants to discuss with Dr Sotomayor neurology / I discussed with Dr Sotomayor, she will call daughter. No change in vision No n/v/d/c Eating well no problems with swallowing. 03/17 Patient says he feels improving. Speech improved significantly. Patient says he was not taking eliquis for more than 2 weeks. Also discussed with the daughter at bedside. All questions answered to the best of my ability. Patient denies new motor or sensory deficit.l NO headache or change in vision. 03/18 the patient is in bed he was ambulating without any problems. Physical therapy does not recommend PT at home. The patient wants to go to [facility] at bedside he is daughter very involved in his care. Patient with speech difficulty however improved significantly. Discussed with neurology Dr. Sotomayor to continue Eliquis as outpatient. Prescription given. Patient denies any new speech, sensory, or motor deficit. All questions answered to best of my ability. Physical exam GENERAL: 68 yo male, in nad CARDIOVASCULAR: Regular rate and rhythm without murmurs, gallops, or rubs. RESPIRATORY: Breath sounds equal bilaterally. No accessory muscle use. GASTROINTESTINAL: Abdomen soft, non-tender, nondistended. MUSCULOSKELETAL: No cyanosis, or edema. BACK: Nontender without obvious deformity. No CVA tenderness. NEURO: Awake and alert. 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 History of CAD. Hypertension. Mild Leukocytosis- resolved Mild YUMIKO H/o DVT Neuro: Monitor neuro status closely and avoid any sedatives. s/p left hemispheric stroke, s/p thrombectomy CT brain: negative for acute disease. CT of the head and neck showed left internal carotid artery occlusion. On Heparin drip per neuro- Dr. Sotomayor. MRI brain 03/14: Acute infarction left frontal temporal lobe Discussed with Russ leyva appreciate recommendations, cta cow and ca as f/u. Imaging reviewed and findings discused with the patient and the daughter at bedside. Start eliquis 5mg bid as patient did not take eliquis for > 2 weeks . DC heparin IV echo nl EF Monitor on telemetry PT/OT/ST Rehab consult. Consult cardio . May need loop recorder Check Doppler LE as h/o dvt Keep SBP into a higher side , prn vasotec if SBP> 180 Pulm: Continue with Oxygen maintain sats > 92%. CV: Monitor HR and BP and maintain MAP >65 mmHg. Echo showed EF 45-50% : Monitor renal function, I's and O's and electrolyte replacement per protocol. d/c IVF GI: on Pepcid for GI prophylaxis. On Po diet ID: Monitor for signs of infection(fever and WBC). Murillo culture if spikes a fever. CXR in ED negative for acute cardiopulmonary disease. . Endo: SSI if needed for glycemic control. heme: Monitor CBC and coags. GI prophylaxis - on Pepcid DVT prophylaxis- on heparin drip . Discussed with the patient, nurse, family at bedside very supportive his daughter Discharge plan: Patient improved significantly. Discharge home to follow-up with PCP and consultants as outpatient. Requested records with imaging on DVD as patient will go to [place] with his daughter and will establish care there with PCP and neurology. Patient to have Eliquis at discharge. Cleared by neurology for discharge to follow-up as outpatient. Results - Labs CBC & Chem 7: 03/16/18 04:02 03/16/18 04:02 Laboratory Results - last 24 hr 03/17/18 03/17/18 03/17/18 08:58 11:09 16:22 APTT 41.2 H POC Glucose 131 H 100 - Imaging Impressions Venous Doppler Study 03/16/18 00:00 CONCLUSION: 1. The study is negative for bilateral lower extremity deep venous thrombosis.
--- NOTE | 2018-03-18 17:25 | P.DS ---
Date of admission: 03/13/18 11:48 Primary care physician: NOT REQUIRED Brief History from admission: Patient is a 68-year-old male with a past medical history of coronary artery disease with previous stent placements and hypertension, who presented to [facility] ED as a stroke alert. The patient had abrupt onset of right-sided weakness, associated with mild facial droop and marked expressive aphasia. 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 However, the patient was only using half the dose of Eliquis. Due to altered mental status, he underwent a CT brain, which showed mild volume loss, otherwise unremarkable. A CTA of the head and neck was obtained, which showed a left ICA occlusion. He was seen by Dr. Sotomayor from neurology service. In addition, the patient went to IR, where he underwent thrombectomy. A chest x-ray in the ED showed no acute cardiopulmonary disease. The patient received heparin in the ED. When seen, the patient is awake, follows commands; however, expressive aphasia noted. He is able to move all 4 extremities. There is no history of previous CVA. DS: Medications - Discharge Medications Prescriptions: apixaban [Eliquis] 5 mg PO BID #60 tab DS: Summary Hospital Course: GENERAL: 68 yo male, in nad CARDIOVASCULAR: Regular rate and rhythm without murmurs, gallops, or rubs. RESPIRATORY: Breath sounds equal bilaterally. No accessory muscle use. GASTROINTESTINAL: Abdomen soft, non-tender, nondistended. MUSCULOSKELETAL: No cyanosis, or edema. BACK: Nontender without obvious deformity. No CVA tenderness. NEURO: Awake and alert. 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 History of CAD. Hypertension. Mild Leukocytosis- resolved Mild YUMIKO H/o DVT Neuro: Monitor neuro status closely and avoid any sedatives. s/p left hemispheric stroke, s/p thrombectomy CT brain: negative for acute disease. CT of the head and neck showed left internal carotid artery occlusion. On Heparin drip per neuro- Dr. Sotomayor. MRI brain 03/14: Acute infarction left frontal temporal lobe Discussed with Russ leyva appreciate recommendations, cta cow and ca as f/u. Imaging reviewed and findings discused with the patient and the daughter at bedside. Start eliquis 5mg bid as patient did not take eliquis for > 2 weeks . DC heparin IV echo nl EF Monitor on telemetry PT/OT/ST Rehab consult. Consult cardio . May need loop recorder Check Doppler LE as h/o dvt Keep SBP into a higher side , prn vasotec if SBP> 180 Pulm: Continue with Oxygen maintain sats > 92%. CV: Monitor HR and BP and maintain MAP >65 mmHg. Echo showed EF 45-50% : Monitor renal function, I's and O's and electrolyte replacement per protocol. d/c IVF GI: on Pepcid for GI prophylaxis. On Po diet ID: Monitor for signs of infection(fever and WBC). Murillo culture if spikes a fever. CXR in ED negative for acute cardiopulmonary disease. . Endo: SSI if needed for glycemic control. heme: Monitor CBC and coags. GI prophylaxis - on Pepcid DVT prophylaxis- on heparin drip . Discussed with the patient, nurse Patient improved significantly. Discharge home to follow-up with PCP and consultants as outpatient. Requested records with imaging on DVD as patient will go to [place] with his daughter and will establish care there with PCP and neurology. Patient to have Eliquis at discharge. Cleared by neurology for discharge to follow-up as outpatient. - Time Spent with Patient Total time spent providing and/or coordinating discharge services: Greater than 30 minutes - Quality: Stroke Last date observed well: 03/13/18 Last time observed well: 08:49 - Quality: VTE Deep Vein Thrombosis/Pulmonary Embolism Present on Admission: No Exam Vital signs: Vital Signs 03/17/18 20:00 03/18/18 00:00 03/18/18 01:24 Temperature 98.9 F 98.7 F Pulse Rate 78 80 Respiratory Rate 18 18 18 Blood Pressure 121/72 107/60 Pulse Oximetry 96 95 03/18/18 04:00 03/18/18 05:03 03/18/18 08:00 Temperature 98.4 F 97.9 F Pulse Rate 80 81 Respiratory Rate 18 18 20 Blood Pressure 127/68 110/59 L Pulse Oximetry 93 L 93 L 03/18/18 12:00 03/18/18 14:32 Temperature 98.0 F Pulse Rate 74 Respiratory Rate 20 Blood Pressure 109/60 Pulse Oximetry 94 L 93 L Intake & Output 08/12/2803/18/18 03/18/18 18:59 06:59 18:59 Output Total 50 / 50 Balance -50 / -50 Weight 95.5 kg Output: Urine 50 / 50 Other: # Voids 1 Date of Last Bowel Movement 03/17/18 03/18/18 # Bowel Movements 1 Results Procedures completed during hospitalization: thrombolysis of left mca with restoation of flow tici [address] Chin radiology on 03/13/18 - Impressions ITS Impressions Cerebral Angiography 03/13/18 00:00 CONCLUSION: 1. Uncomplicated Thrombectomy of left carotid terminus and proximal left middle cerebral artery lesion with worship of TICI3 flow Chest X-Ray 03/13/18 09:27 CONCLUSION: 1. No acute cardiopulmonary disease. Head MRI 03/14/18 00:00 CONCLUSION: 1. There is evidence of an acute infarction involving the left temporal frontal lobe. Head CTA 03/16/18 00:00 CONCLUSION: 1. Left ICA no longer occluded. 2. Focal stenosis or thrombus is distal to the MCA bifurcation is no longer seen. Neck CTA 03/16/18 00:00 CONCLUSION: 1. Left internal carotid artery no longer occluded. 2. New short segment proximal occlusion of the left external carotid artery. Venous Doppler Study 03/16/18 00:00 CONCLUSION: 1. The study is negative for bilateral lower extremity deep venous thrombosis. Head CT 03/16/18 20:17 CONCLUSION: Left frontal lobe infarct again seen. No evidence of acute hemorrhage. Mild mass effect but no midline shift. . Discharge Plan - Discharge Disposition Patient Disposition: Discharge Home - Discharge Condition Condition: Stable - Discharge Order Discharge Orders: Discharge Order (Routine); Ordered 03/18/18 Ordered By: Florina Betancourt - Discharge Details Anticipated Discharge Date: 03/18/18 - Physicians Team Primary Care Provider: NOT REQUIRED, Attending Provider: Florina Betancourt Other Providers: Trisha Sotomayor MD ; Florina Betancourt MD
== END 2018-03-18 19:17 | disposition home or self-care (01) ==
LOC: NEPE 09:20 → N03 09:50 → NEPE 09:50 → NEDA 11:48 → N03 13:07 → N05 03-16 16:00
PROVIDERS: ADMIT Hospitalist; ATTEND Hospitalist